=== PATIENT | female | born 1965 | race Caucasian/White ===

== ENCOUNTER 2016-08-27 11:16 | Emergency (ER) | payer SELFPAY ==
[2016-08-27 11:21] VITALS: BP 121/79
--- NOTE | 2016-08-27 11:24 | ER Document Report ---
ED Medical Screen (RME) - General Stated Complaint: LEFT EAR PAIN, DRAINAGE Time seen by provider: 11:19 Mode of Arrival: Ambulatory Information source: Patient Notes: 51 yo female presents to ed for left ear pain with decreased hearing with congestion. Pain is worse at night when she lays down. "tunnel hearing" TRAVEL OUTSIDE OF THE [place] IN LAST 30 DAYS: No - HPI Onset: Other - 3rd day Onset/Duration: Gradual Quality of pain: Achy, Throbbing - night only Severity: Moderate Pain Level: 4 Associated Symptoms: Earache - decreased hearing, Headache Exacerbated by: Supine Relieved by: Denies Similar symptoms previously: Yes Recently seen / treated by doctor: No - Related Data Smoking: Cigarettes - 1/2 ppd Frequency of alcohol use: Rare Drug Abuse: None Allergies/Adverse Reactions: Sulfa (Sulfonamide Antibiotics) Allergy (Verified 07/15/15 10:41) Past Medical History - Past Medical History Cardiac Medical History: Reports: Hx Hypercholesterolemia Pulmonary Medical History: Reports: Hx Asthma, Hx Bronchitis Renal/ Medical History: Reports: Hx Pelvic Inflammatory Disease Musculoskeltal Medical History: Reports Hx Musculoskeletal Trauma - right wrist Psychiatric Medical History: Reports: Hx Anxiety, Hx Borderline Personality Disorder, Hx Depression, Hx Post Traumatic Stress Disorder Traumatic Medical History: Reports: Hx Fractures Past Surgical History: Reports: Hx Oral Surgery - Immunizations Immunizations up to date: Yes Hx Diphtheria, Pertussis, Tetanus Vaccination: Yes - 2013
[2016-08-27] MEDS ORDERED: CIPROFLOXACIN HCL/DEXAMETH OTIC DROP 7.5 ML AS ONE (12:07)
--- NOTE | 2016-08-27 12:08 | ER Document Report ---
ED ENT - General Chief Complaint: Ear Pain Stated Complaint: LEFT EAR PAIN, DRAINAGE Mode of Arrival: Ambulatory Information source: Patient Notes: 51 y/o F presents to ED c/o left ear pain. Pt reports has cough/congestion last week which resolved however states left ear has been feeling congested and causing her pain since, worse over the last 3 days. States she used a qtip to clean her ear out last week but did not feel she injured her ear. Reports noted small amount of pinkish drainage from ear yesterday. Denies fever, chest pain, sob. TRAVEL OUTSIDE OF THE [place] IN LAST 30 DAYS: No - HPI Patient complains to provider of: Ear problem Onset/Duration: Persistent Quality of pain: Achy Severity: Moderate Pain Level: 3 Location of pain: Ears Associated symptoms: Ear pain, Ear drainage Similar symptoms previously: No Recently seen / treated by doctor: No - Related Data Allergies/Adverse Reactions: Sulfa (Sulfonamide Antibiotics) Allergy (Verified 07/15/15 10:41) Past Medical History - General Information source: Patient - Social History Smoking Status: Never Smoker Frequency of alcohol use: Rare Drug Abuse: None Lives with: Family Family History: Reviewed & Not Pertinent Patient has suicidal ideation: No Patient has homicidal ideation: No - Past Medical History Cardiac Medical History: Reports: Hx Hypercholesterolemia Pulmonary Medical History: Reports: Hx Asthma, Hx Bronchitis Renal/ Medical History: Reports: Hx Pelvic Inflammatory Disease Musculoskeltal Medical History: Reports Hx Musculoskeletal Trauma - right wrist Psychiatric Medical History: Reports: Hx Anxiety, Hx Borderline Personality Disorder, Hx Depression, Hx Post Traumatic Stress Disorder Traumatic Medical History: Reports: Hx Fractures Past Surgical History: Reports: Hx Oral Surgery - Immunizations Immunizations up to date: Yes Hx Diphtheria, Pertussis, Tetanus Vaccination: Yes - 2013 Review of Systems - Review of Systems Constitutional: No symptoms reported EENT: See HPI Cardiovascular: No symptoms reported Respiratory: No symptoms reported Gastrointestinal: No symptoms reported Genitourinary: No symptoms reported Female Genitourinary: No symptoms reported Musculoskeletal: No symptoms reported Skin: No symptoms reported Hematologic/Lymphatic: No symptoms reported Neurological/Psychological: No symptoms reported -: Yes All other systems reviewed and negative Physical Exam - Vital signs Vitals: Temp Pulse Resp BP Pulse Ox 98.3 F 70 16 121/79 97 08/27/16 11:20 08/27/16 11:20 08/27/16 11:20 08/27/16 11:20 08/27/16 11:20 Interpretation: Normal - General General appearance: Appears well, Alert In distress: None - HEENT Head: Normocephalic, Atraumatic Eyes: Normal Conjunctiva: Normal Extraocular movements intact: Yes Eyelashes: Normal Pupils: PERRL Ears: Normal - right WNL, Tragus tenderness - left. No: Pinna tenderness External canal: Normal - right WNL, Erythema - left, Swollen - mild-left Tympanic membrane: Normal - right WNL, Perforation - left Sinus: Normal Nasal: Normal Mouth/Lips: Normal Mucous membranes: Normal, Moist Pharynx: Normal. No: Blood in hypopharynx, Erythema, Exudate, Peritonsillar abscess, Post nasal drainage, Retropharyngeal abscess, Tonsillar hypertrophy, Uvular edema, Potential airway comprom., Other Neck: Normal. No: Anterior cervical chain, Posterior cervical chain, Lymphadenopathy, Meningismus, Subcutaneous emphysema - Respiratory Respiratory status: No respiratory distress Chest status: Nontender Breath sounds: Normal Chest palpation: Normal - Cardiovascular Rhythm: Regular Heart sounds: Normal auscultation Murmur: No Pulses: Normal: Radial Normal capillary refill: Yes - Extremities General upper extremity: Normal inspection, Nontender, Normal color, Normal ROM General lower extremity: Normal inspection, Normal color, Normal ROM, Normal weight bearing - Neurological Neuro grossly intact: Yes Cognition: Normal Orientation: AAOx4 [place] Coma Scale Eye Opening: Spontaneous [place] Coma Scale Verbal: Oriented [place] Coma Scale Motor: Obeys Commands [place] Coma Scale Total: 15 Speech: Normal Motor strength normal: LUE, RUE, LLE, RLE Sensory: Normal - Psychological Associated symptoms: Normal affect, Normal mood - Skin Skin Temperature: Warm Skin Moisture: Dry Skin Color: Normal Skin Turgor: Elastic Course - Re-evaluation Re-evalutation: 08/27/16 12:09 Pt hemodynamically stable, in no distress, afebrile. Physical exam findings suggestive of uncomplicated left otitis externa possibly secondary to otitis media with TM perforation. Pt appears stable for discharge and outpatient treatment. Home care, follow-up with pcp and ENT, and ED return precautions discussed with patient who verbalized understanding and agrees with plan. - Vital Signs Vital signs: Temp Pulse Resp BP Pulse Ox 98.3 F 70 16 121/79 97 08/27/16 11:20 08/27/16 11:20 08/27/16 11:20 08/27/16 11:20 08/27/16 11:20 Discharge - Discharge Clinical Impression: Otitis externa Qualifiers: Otitis externa type: unspecified type Laterality: left Chronicity: acute Qualified Code(s): H60.502 - Unspecified acute noninfective otitis externa, left ear Otitis media with rupture of tympanic membrane Qualifiers: Laterality: left Qualified Code(s): H66.92 - Otitis media, unspecified, left ear Condition: Stable Disposition: HOME, SELF-CARE Additional Instructions: OTITIS MEDIA: You have a middle ear infection (otitis media). This is usually a complication of a cold or sore throat. The middle ear cavity becomes filled with infection. Pressure and stretching of the ear drum cause pain. Antibiotics are required. A 10 day course is usually prescribed. A decongestant may be recommended if you have a "runny nose." You may need anesthetic drops or other pain medication. A follow-up exam may be recommended to make sure the infection has completely cleared. If the ear begins to drain, it means the ear drum has ruptured. This will usually heal spontaneously. However, it means you should keep the ear dry until re-examined by a doctor. Call the physician or return for examination at once if there is severe headache, stiff neck, confusion, increasing fever, or dizziness. You should improve significantly within two days. If you're not better, call the doctor. AMOXICILLIN: Amoxicillin is a member of the penicillin family. It covers the germs likely to cause ear, bronchial, and urinary infections better than plain penicillin. Amoxicillin can be taken without regard to meals. Nausea after taking the medication is rare, but can occur. Diarrhea can occur, particularly in small children. Vaginal yeast infections and oral thrush in infants are also common. Contact your physician if these problems occur. Allergy to penicillins is common. If you have had an allergic reaction to any drug of the penicillin family, you should never take any other penicillin. Notify your doctor at once if you develop hives, itching, swelling, faintness, or shortness of breath. Less serious side effects can include nausea or diarrhea. Perforated Eardrum You have a ruptured eardrum. The ruptured eardrum alone is usually not serious. It will probably heal completely within a week or two. If the perforation is too large to heal, further treatment may be necessary. Antibiotics are given if the perforation resulted from infection, or if the middle ear cavity may have been contaminated at the time of perforation. Do not allow any water to get into your ear until the doctor has told you the eardrum is healed. Use an earplug or Vaseline-covered cotton ball for showers. DO NOT SWIM. Follow-up examination to assure complete healing and complete return of hearing will be necessary, and is usually done in one week. If there is purulent drainage, increasing pain, or fever, call the doctor or return at once for re-evaluation. OTITIS EXTERNA: You have otitis externa -- an infection of the outer ear canal. This can be very painful. It's sometimes called "swimmer's ear," because it often occurs after prolonged water exposure. Many things, such as earwax and dirt in the ear, can contribute to it. The usual treatment is antibiotic/antiinflammatory ear drops. Occasionally , a wick will be placed in the ear to draw in the medicine. If the infection is severe, an oral antibiotic may be prescribed. Pain medication is often needed. Avoid getting water in the ear. Outer ear infections often take longer to heal than you might expect. Some tenderness and ache in the ear may persist for about two weeks. See your physician if you fail to improve as expected. Call the doctor at once if you develop fever, increasing swelling (particularly if it makes your ear "poke out"), severe headache, stiff neck, or decreased hearing. USE OF EAR DROPS: Your ear drops won't do much good if they don't get all the way in. To help the ear drops penetrate all the way to the ear drum, use the following technique. If you encounter problems of any kind, notify the physician. (1) Lay your head sideways on a pillow. (2) Place the dropper tip just barely inside the ear canal, almost touching the bottom side of the canal. The liquid is tolerated better on the bottom of the canal. (3) Squeeze out the appropriate amount of medicine, and remove the dropper. (4) Grab the back of the ear (just behind the ear canal) between your index finger and thumb. (5) Tug up, then let the ear drop back. Repeat several times. This pumps the medicine down. (6) Wait five minutes, then place a cotton ball in the ear canal to catch and hold the medicine. CIPROFLOXACIN: You have been given an antibacterial agent, ciprofloxacin (Cipro). This medicine is not related to the penicillins, sulfas, cephalosporins, or tetracyclines. It is often given to patients who are allergic to these drugs. It has been chosen for you either because other drugs are not appropriate, or because of the nature of your problem. Cipro should not be taken with antacids, as these can decrease its effectiveness. It can be taken without regard to meals. CIPRO SHOULD NOT BE TAKEN BY CHILDREN, NURSING WOMEN, OR WOMEN. Although Cipro is usually well-tolerated, common side effects can include nausea and diarrhea. Contact your doctor if you experience any unusual symptoms while on this medication, such as joint pain or swelling, shortness of breath, wheezing, faintness, or hives. USE OF ACETAMINOPHEN (Tylenol): Acetaminophen may be taken for pain relief or fever control. It's much safer than aspirin, offering a wider range of "safe" dosages. It is safe during . Some brand names are Tylenol, Panadol, Datril, Anacin 3, Tempra, and Liquiprin. Acetaminophen can be repeated every four hours. The following are maximum recommended dosages: WEIGHT Dose Drops Elixir Chewable( 80mg) (LBS.) drprs=droppers tsp=teaspoon 6 40 mg 0.4 ml (1/2) 6-11 80 mg 0.8 ml (full) tsp 1 tab 12-16 120 mg 1 1/2 drprs 3/4 tsp 1 1/2 tabs 17-23 160 mg 2 drprs 1 tsp 2 tabs 24-30 240 mg 3 drprs 1 1/2 tsp 3 tabs 30-35 320 mg 2 tsp 4 tabs 36-41 360 mg 2 1/4 tsp 4 1/2 tabs 42-47 400 mg 2 1/2 tsp 5 tabs 48-53 480 mg 3 tsp 6 tabs 54-59 520 mg 3 1/4 tsp 6 1/2 tabs 60-64 560 mg 3 1/2 tsp 7 tabs 65-70 600 mg 3 3/4 tsp 7 1/2 tabs 71-76 640 mg 4 tsp 8 tabs 77-82 720 mg 4 1/2 tsp 9 tabs 83-88 800 mg 5 tsp 10 tabs >89 pounds or adults 650 mg to 900 mg Acetaminophen can be repeated every four hours. Maximum dose not to exceed 4000 mg a day. These maximum recommended dosages are slightly higher than the dosages written on the product container, but these dosages are very safe and below the toxic dosage for acetaminophen. Anti-Inflammatory Medication You have received a prescription for an antiinflammatory agent. This is an excellent, safe drug for pain control. In addition, it has potent antiinflammatory effects which are beneficial, especially in the treatment of injuries, arthritis, or tendonitis. It's best to take this medicine with food. Persons with ulcer disease or allergy to aspirin should notify their physician of this before taking this drug. Take the medication exactly as prescribed. Don't take additional doses unless instructed to do so by your doctor. If you develop wheezing, shortness of breath, hives, faintness, stomach pain, vomiting, or dark black stools, return for re-evaluation at once. FOLLOW-UP CARE: Apply 4 drops of the provided antibiotic drops (Ciprodex) into left ear twice daily for 1 week. Follow-up with your primary care provider and ENT within the next week as discussed. Return to the Emergency Department for any worsening symptoms or concerns. Prescriptions: Amoxicillin 1 tab PO BID 7 Days Naproxen [Naprosyn 375 Mg Tablet] 375 mg PO BIDP PRN #10 tablet PRN Reason: Referrals: [facility] [Provider Group] - Follow up tomorrow
== END 2016-08-27 12:31 | disposition home or self-care (01) ==
LOC: ER 11:16
DX: H60.502 Unspecified acute noninfective otitis externa, left ear (principal); H66.92 Otitis media, unspecified, left ear; H92.02 Otalgia, left ear; E78.00 Pure hypercholesterolemia, unspecified; Z88.2 Allergy status to sulfonamides
CPT/HCPCS: 99282; J3490

== ENCOUNTER 2016-10-20 17:11 | Emergency (ER) | payer SELFPAY ==
[2016-10-20] MEDS ORDERED: ONDANSETRON 4 MG TAB.RAPDIS PO ONE ×2 (17:38→20:49)
--- NOTE | 2016-10-20 17:38 | ER Document Report ---
ED Medical Screen (RME) - General Stated Complaint: VOMITING,FEVER Time seen by provider: 17:36 Mode of Arrival: Ambulatory Information source: Patient Notes: Patient states she ate at [employer] last night, and started having vomiting and diarrhea a couple hours later. Woke up this morning with fever and body aches. Patient states she still has congestion from a cold that she had last week. I have greeted and performed a rapid initial assessment of this patient. A comprehensive ED assessment and evaluation of the patient, analysis of test results and completion of the medical decision making process will be conducted by additional ED providers. TRAVEL OUTSIDE OF THE [place] IN LAST 30 DAYS: No - Related Data Allergies/Adverse Reactions: Sulfa (Sulfonamide Antibiotics) Allergy (Verified 10/20/16 17:38) Past Medical History - Past Medical History Cardiac Medical History: Reports: Hx Hypercholesterolemia Pulmonary Medical History: Reports: Hx Asthma, Hx Bronchitis Renal/ Medical History: Reports: Hx Pelvic Inflammatory Disease Musculoskeltal Medical History: Reports Hx Musculoskeletal Trauma - right wrist Psychiatric Medical History: Reports: Hx Anxiety, Hx Borderline Personality Disorder, Hx Depression, Hx Post Traumatic Stress Disorder Traumatic Medical History: Reports: Hx Fractures Past Surgical History: Reports: Hx Oral Surgery - Immunizations Immunizations up to date: Yes Hx Diphtheria, Pertussis, Tetanus Vaccination: Yes - 2013 Physical Exam - Vital signs Vitals: Temp Pulse Resp BP Pulse Ox 102.6 F H 88 20 110/69 96 10/20/16 17:26 10/20/16 17:26 10/20/16 17:26 10/20/16 17:26 10/20/16 17:26 - Abdominal Inspection: Normal Bowel sounds: Hyperactive Tenderness: Tender - diffuse tenderness Course - Vital Signs Vital signs: Temp Pulse Resp BP Pulse Ox 102.6 F H 88 20 110/69 96 10/20/16 17:26 10/20/16 17:26 10/20/16 17:26 10/20/16 17:26 10/20/16 17:26
[2016-10-20 18:07] LABS: APPEARANCE,URINE SLIGHTLY-CLOUDY; BILIRUBIN,URINE NEGATIVE (NEGATIVE); GLUCOSE, URINE NEGATIVE (NEGATIVE); KETONES,URINE NEGATIVE (NEGATIVE); LEUKOCYTE ESTERASE,URINE TRACE (NEGATIVE); NITRITE,URINE NEGATIVE (NEGATIVE); PROTEIN,URINE 30 mg/dL (NEGATIVE); URINE SPECIFIC GRAVITY 1.031; UROBILINOGEN,URINE NEGATIVE mg/dL (<2.0)
[2016-10-20] MEDS ORDERED: ACETAMINOPHEN 325 MG TABLET PO ONE (19:41)
[2016-10-20] MEDS ORDERED: MORPHINE SULFATE 10 MG/ML INJ IV ONE (22:05)
[2016-10-20] MEDS ORDERED: NORMAL SALINE 1000 ML 1,000 ML IV ONE (22:06)
--- NOTE | 2016-10-20 22:07 | ER Document Report ---
ED GI/ - General Chief Complaint: Nausea/Vomiting/Diarrhea Stated Complaint: VOMITING,FEVER Mode of Arrival: Ambulatory Notes: Patient is a 51-year-old female that comes emergency department for chief complaint of vomiting, diarrhea, pain in her abdomen, and a fever. Symptoms started last night. Patient denies any cough, raw food, denies recent antibiotics. She reports some discomfort with urination. 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 TRAVEL OUTSIDE OF THE [place] IN LAST 30 DAYS: No - Related Data Allergies/Adverse Reactions: Sulfa (Sulfonamide Antibiotics) Allergy (Verified 10/20/16 17:38) Past Medical History - General Information source: Patient - Social History Smoking Status: Current Every Day Smoker Chew tobacco use (# tins/day): No Frequency of alcohol use: Occasional Drug Abuse: None Lives with: Alone Family History: Reviewed & Not Pertinent Patient has suicidal ideation: No Patient has homicidal ideation: No - Past Medical History Cardiac Medical History: Reports: Hx Hypercholesterolemia Pulmonary Medical History: Reports: Hx Asthma, Hx Bronchitis Renal/ Medical History: Reports: Hx Pelvic Inflammatory Disease. Denies: Hx Peritoneal Dialysis Musculoskeltal Medical History: Reports Hx Musculoskeletal Trauma - right wrist Psychiatric Medical History: Reports: Hx Anxiety, Hx Borderline Personality Disorder, Hx Depression, Hx Post Traumatic Stress Disorder Traumatic Medical History: Reports: Hx Fractures Past Surgical History: Reports: Hx Oral Surgery - Immunizations Immunizations up to date: Yes Hx Diphtheria, Pertussis, Tetanus Vaccination: Yes - 2013 Review of Systems - Review of Systems Constitutional: See HPI EENT: No symptoms reported Cardiovascular: No symptoms reported Respiratory: No symptoms reported Gastrointestinal: See HPI Genitourinary: No symptoms reported Female Genitourinary: No symptoms reported Musculoskeletal: No symptoms reported Skin: No symptoms reported Hematologic/Lymphatic: No symptoms reported Neurological/Psychological: No symptoms reported Physical Exam - Vital signs Vitals: Temp Pulse Resp BP Pulse Ox 102.6 F H 88 20 110/69 96 10/20/16 17:26 10/20/16 17:26 10/20/16 17:26 10/20/16 17:26 10/20/16 17:26 Interpretation: Normal - General General appearance: Appears well, Alert In distress: None - HEENT Head: Normocephalic, Atraumatic Eyes: Normal Conjunctiva: Normal Extraocular movements intact: Yes Eyelashes: Normal Pupils: PERRL Sinus: Normal Nasal: Normal Mouth/Lips: Normal Mucous membranes: Normal Pharynx: Normal Neck: Normal - Respiratory Respiratory status: No respiratory distress Chest status: Nontender Breath sounds: Normal. No: Decreased air movement, Nonproductive cough, Wheezing Chest palpation: Normal - Cardiovascular Rhythm: Regular. No: Tachycardia Heart sounds: Normal auscultation, S1 appreciated, S2 appreciated Murmur: No - Abdominal Inspection: Normal Distension: No distension Bowel sounds: Normal Tenderness: Nontender - No noted abdominal tenderness on examination, soft and benign. No: McBurney's point, Landa's sign, Guarding Organomegaly: No organomegaly - Back Back: Normal, Nontender. No: Tender, Deformity/step-off, CVA tenderness - Extremities General upper extremity: Normal inspection, Nontender, Normal color, Normal ROM , Normal temperature General lower extremity: Normal inspection, Nontender, Normal color, Normal ROM , Normal temperature, Normal weight bearing. No: Tereso's sign - Neurological Neuro grossly intact: Yes Cognition: Normal Orientation: AAOx4 [place] Coma Scale Eye Opening: Spontaneous [place] Coma Scale Verbal: Oriented [place] Coma Scale Motor: Obeys Commands [place] Coma Scale Total: 15 Speech: Normal Cranial nerves: Normal Cerebellar coordination: Normal Motor strength normal: LUE, RUE, LLE, RLE Additional motor exam normals: Equal squad sergeant Sensory: Normal - Psychological Associated symptoms: Normal affect, Normal mood - Skin Skin Temperature: Warm Skin Moisture: Dry Skin Color: Normal Course - Re-evaluation Re-evalutation: CBC unremarkable, chemistry unremarkable, urine shows elevated specific gravity but is otherwise unremarkable. Patient's abdomen is soft on examination, requested stool from patient, patient unable to provide this, patient requesting something for discomfort although she appears to be in no distress, no tachycardia, fever resolved after treatment. On multiple re-examinations patient with no decompensation, abdominal exam remains benign, patient unable to give stool sample still, has not had any vomiting. I suspect a viral process because of patient's normal exam, unremarkable workup, and easily treated symptoms. Discussed with patient, she states she is ready to go home, discussed follow-up and return precautions, patient states understanding and agreement. - Vital Signs Vital signs: Temp Pulse Resp BP Pulse Ox 98.2 F 57 L 14 109/66 97 10/21/16 01:50 10/21/16 01:50 10/21/16 01:50 10/21/16 01:50 10/21/16 01:50 - Laboratory Result Diagrams: 10/20/16 22:35 10/20/16 22:35 Laboratory results interpreted by me: 10/20/16 10/20/16 17:45 22:35 Sodium 136.5 L Glucose 112 H Urine Protein 30 H Ur Leukocyte Esterase TRACE H Discharge - Discharge Clinical Impression: Nausea vomiting and diarrhea Fever Qualifiers: Fever type: unspecified Qualified Code(s): R50.9 - Fever, unspecified Condition: Stable Disposition: HOME, SELF-CARE Additional Instructions: Laboratory workup and examination do not indicate an acute abnormality, this could be viral. Take Tylenol or ibuprofen for fever, take Zofran/phenergan for nausea and vomiting, follow-up closely with primary care. Return the emergency department immediately for any concerning or worsening symptoms including worsening abdominal pain, abdominal distention, uncontrolled vomiting, etc. Prescriptions: Promethazine HCl [Phenergan 25 mg Tablet] 1 - 2 tab PO Q6H PRN #15 tablet PRN Reason:
[2016-10-20 22:44] LABS: ABSOLUTE BASOPHILS # (AUTO) 0.1 10^3/uL (0.0-0.2); ABSOLUTE EOSINOPHILS # (AUTO) 0.1 10^3/uL (0.0-0.6); ABSOLUTE LYMPHOCYTES (AUTO) 1.7 10^3/uL (0.5-4.7); ABSOLUTE MONOCYTES (AUTO) 0.6 10^3/uL (0.1-1.4); ABSOLUTE NEUT (AUTO) 5.5 10^3/uL (1.7-8.2); BASOPHILS % (AUTO) 0.6 % (0-2); EOSINOPHILS % (AUTO) 0.9 % (0-6); HEMATOCRIT 43.9 % (36.0-47.0); HEMOGLOBIN 14.8 g/dL (12.0-15.5); HGB HCT DIFFERENCE 0.5; LYMPHOCYTES % (AUTO) 21.5 % (13-45); MEAN CORPUSCULAR HEMOGLOBIN 32.5 pg (27.0-33.4); MEAN CORPUSCULAR HGB CONC 33.7 g/dL (32.0-36.0); MEAN CORPUSCULAR VOLUME 96 fl (80-97); MONOCYTES % (AUTO) 7.7 % (3-13); RED BLOOD COUNT 4.56 10^6/uL (3.72-5.28); RED CELL DISTRIBUTION WIDTH 13.9 % (11.5-14.0); SEGMENTED NEUTROPHILS % (AUTO) 69.3 % (42-78); WHITE BLOOD COUNT 7.9 10^3/uL (4.0-10.5)
[2016-10-20 22:56] LABS: ALANINE AMINOTRANSFERASE 27 U/L (9-52); ALBUMIN 3.7 g/dL (3.5-5.0); ALKALINE PHOSPHATASE 64 U/L (38-126); ANION GAP 9 (5-19); ASPARTATE AMINO TRANSFERASE 20 U/L (14-36); BILIRUBIN,TOTAL 1.1 mg/dL (0.2-1.3); BLOOD UREA NITROGEN 17 mg/dL (7-20); CALCIUM 8.7 mg/dL (8.4-10.2); CARBON DIOXIDE 27 mmol/L (22-30); CHLORIDE 101 mmol/L (98-107); CREATININE RESULT 0.89 mg/dL (0.52-1.25); GLUCOSE 112 mg/dL (75-110); LIPASE 73.3 U/L (23-300); POTASSIUM 3.6 mmol/L (3.6-5.0); SODIUM 136.5 mmol/L (137-145); TOTAL PROTEIN 6.4 g/dL (6.3-8.2)
[2016-10-21] MEDS ORDERED: ONDANSETRON ODT 4 MG TAB (6 TAB/DSPK) PO PRN (01:40)
[2016-10-21] MEDS ORDERED: IBUPROFEN 400 MG TABLET PO ONE (01:57)
[2016-10-21 01:58] VITALS: BP 109/66
== END 2016-10-21 01:55 | disposition home or self-care (01) ==
LOC: ER 17:11
DX: R11.2 Nausea with vomiting, unspecified (principal); R19.7 Diarrhea, unspecified; R50.9 Fever, unspecified; R10.9 Unspecified abdominal pain; R30.0 Dysuria; J44.9 Chronic obstructive pulmonary disease, unspecified; D69.3 Immune thrombocytopenic purpura; J45.909 Unspecified asthma, uncomplicated; F17.200 Nicotine dependence, unspecified, uncomplicated; Z90.81 Acquired absence of spleen; Z88.2 Allergy status to sulfonamides; Z87.42 Personal history of other diseases of the female genital tract
CPT/HCPCS: 99283; 96361; 96374; 36415; 83690; 85025; 80053; 81001; S0119; J3490; J2270; J7030

== ENCOUNTER 2017-08-30 13:08 | Emergency (ER) | payer SELFPAY ==
[2017-08-30] MEDS ORDERED: ONDANSETRON HCL INJ/PF 4 MG/2 ML SDV IV ONE (13:50)
[2017-08-30] MEDS ORDERED: NORMAL SALINE 1000 ML 1,000 ML IV ONE ×2 (13:50→14:38)
--- NOTE | 2017-08-30 13:52 | ER Document Report ---
ED Medical Screen (RME) - General Chief Complaint: Nausea/Vomiting Stated Complaint: NAUSEA,VOMITING,CONGESTION Time Seen by Provider: 08/30/17 13:49 Notes: flu like/n,v,d. TRAVEL OUTSIDE OF THE [place] IN LAST 30 DAYS: No - Related Data Allergies/Adverse Reactions: Sulfa (Sulfonamide Antibiotics) Allergy (Verified 08/30/17 13:10) Past Medical History - Social History Chew tobacco use (# tins/day): No Frequency of alcohol use: None Drug Abuse: None - Past Medical History Cardiac Medical History: Reports: Hx Hypercholesterolemia Pulmonary Medical History: Reports: Hx Asthma, Hx Bronchitis Renal/ Medical History: Reports: Hx Pelvic Inflammatory Disease. Denies: Hx Peritoneal Dialysis Musculoskeltal Medical History: Reports Hx Musculoskeletal Trauma - right wrist Psychiatric Medical History: Reports: Hx Anxiety, Hx Borderline Personality Disorder, Hx Depression, Hx Post Traumatic Stress Disorder Traumatic Medical History: Reports: Hx Fractures Past Surgical History: Reports: Hx Oral Surgery - Immunizations Immunizations up to date: Yes Hx Diphtheria, Pertussis, Tetanus Vaccination: Yes - 2013 Physical Exam - Vital signs Vitals: Temp Pulse Resp BP Pulse Ox 98.6 F 93 18 134/69 H 94 08/30/17 13:20 08/30/17 13:20 08/30/17 13:20 08/30/17 13:20 08/30/17 13:20 Course - Vital Signs Vital signs: Temp Pulse Resp BP Pulse Ox 98.6 F 93 18 134/69 H 94 08/30/17 13:20 08/30/17 13:20 08/30/17 13:20 08/30/17 13:20 08/30/17 13:20
[2017-08-30 14:20] LABS: ABSOLUTE BASOPHILS # (AUTO) 0.1 10^3/uL (0.0-0.2); ABSOLUTE EOSINOPHILS # (AUTO) 0.1 10^3/uL (0.0-0.6); ABSOLUTE LYMPHOCYTES (AUTO) 2.8 10^3/uL (0.5-4.7); ABSOLUTE MONOCYTES (AUTO) 1.6 10^3/uL (0.1-1.4); ABSOLUTE NEUT (AUTO) 4.1 10^3/uL (1.7-8.2); BASOPHILS % (AUTO) 0.9 % (0-2); EOSINOPHILS % (AUTO) 1.5 % (0-6); HEMATOCRIT 47.2 % (36.0-47.0); HEMOGLOBIN 16.2 g/dL (12.0-15.5); LYMPHOCYTES % (AUTO) 31.9 % (13-45); MEAN CORPUSCULAR HEMOGLOBIN 32.6 pg (27.0-33.4); MEAN CORPUSCULAR HGB CONC 34.3 g/dL (32.0-36.0); MEAN CORPUSCULAR VOLUME 95 fl (80-97); MONOCYTES % (AUTO) 18.4 % (3-13); PLATELET COUNT 605 10^3/uL (150-450); RED BLOOD COUNT 4.97 10^6/uL (3.72-5.28); RED CELL DISTRIBUTION WIDTH 13.7 % (11.5-14.0); SEGMENTED NEUTROPHILS % (AUTO) 47.3 % (42-78); TOTAL CELLS COUNTED % (AUTO) 100 %; WHITE BLOOD COUNT 8.6 10^3/uL (4.0-10.5)
[2017-08-30 14:34] LABS: APPEARANCE,URINE SLIGHTLY-CLOUDY; BILIRUBIN,URINE NEGATIVE (NEGATIVE); COLOR,URINE AMBER; GLUCOSE, URINE NEGATIVE (NEGATIVE); KETONES,URINE NEGATIVE (NEGATIVE); LEUKOCYTE ESTERASE,URINE MODERATE (NEGATIVE); NITRITE,URINE POSITIVE (NEGATIVE); PROTEIN,URINE 30 mg/dL (NEGATIVE); URINE SPECIFIC GRAVITY 1.033
[2017-08-30 14:37] LABS: ALANINE AMINOTRANSFERASE 26 U/L (9-52); ALBUMIN 4.6 g/dL (3.5-5.0); ALKALINE PHOSPHATASE 77 U/L (38-126); ANION GAP 10 (5-19); ASPARTATE AMINO TRANSFERASE 27 U/L (14-36); BILIRUBIN,DIRECT 0.2 mg/dL (0.0-0.4); BILIRUBIN,TOTAL 0.5 mg/dL (0.2-1.3); BLOOD UREA NITROGEN 11 mg/dL (7-20); CALCIUM 9.6 mg/dL (8.4-10.2); CARBON DIOXIDE 27 mmol/L (22-30); CHLORIDE 104 mmol/L (98-107); GLUCOSE 115 mg/dL (75-110); POTASSIUM 3.7 mmol/L (3.6-5.0); SODIUM 141.1 mmol/L (137-145); TOTAL PROTEIN 8.3 g/dL (6.3-8.2)
--- NOTE | 2017-08-30 14:48 | ER Document Report ---
ED General - General Chief Complaint: Nausea/Vomiting Stated Complaint: NAUSEA,VOMITING,CONGESTION Time Seen by Provider: 08/30/17 13:49 TRAVEL OUTSIDE OF THE [place] IN LAST 30 DAYS: No - HPI Notes: Patient is a 52-year-old female with a history of ITP who presents to the ED complaining of body ache, nasal congestion/discharge, dry nonproductive cough, intermittent nausea/vomiting/diarrhea 3 days. Patient states that she has also had increased urinary frequency and voiding small amounts over the last several days. Patient states that she is still able to keep fluids down, but anytime she smells food she becomes nauseous. Patient has not noticed any hematemesis, melena, or hematochezia. Patient has not been using any over-the- counter meds for her symptoms currently. Patient did not get her flu shot this year. No other concerns or complaints at this time. Denies any headache, fever ,neck pain, sore throat, chest pain, palpitations, syncope, shortness of breath , wheeze, dyspnea, abdominal pain, urinary retention, loss of control of bowel or bladder, numbness/tingling, saddle anesthesia, muscle paralysis/weakness, or rash. - Related Data Allergies/Adverse Reactions: Sulfa (Sulfonamide Antibiotics) Allergy (Verified 08/30/17 13:10) Past Medical History - Social History Smoking Status: Current Every Day Smoker Chew tobacco use (# tins/day): No Frequency of alcohol use: None Drug Abuse: None Family History: Reviewed & Not Pertinent Patient has suicidal ideation: No Patient has homicidal ideation: No - Past Medical History Cardiac Medical History: Reports: Hx Hypercholesterolemia Pulmonary Medical History: Reports: Hx Asthma, Hx Bronchitis Renal/ Medical History: Reports: Hx Pelvic Inflammatory Disease. Denies: Hx Peritoneal Dialysis Musculoskeltal Medical History: Reports Hx Musculoskeletal Trauma - right wrist Psychiatric Medical History: Reports: Hx Anxiety, Hx Borderline Personality Disorder, Hx Depression, Hx Post Traumatic Stress Disorder Traumatic Medical History: Reports: Hx Fractures Past Surgical History: Reports: Hx Oral Surgery - Immunizations Immunizations up to date: Yes Hx Diphtheria, Pertussis, Tetanus Vaccination: Yes - 2013 Review of Systems - Review of Systems Notes: REVIEW OF SYSTEMS: CONSTITUTIONAL : see hpi. Denies fever, chills, or sweats. Denies recent illness. EENT: see hpi CARDIOVASCULAR: Denies chest pain. Denies palpitations or racing or irregular heart beat. Denies ankle edema. RESPIRATORY: see hpi. Denies shortness of breath, difficulty breathing, or wheezing. GASTROINTESTINAL: see hpi GENITOURINARY: see hpi MUSCULOSKELETAL: Denies back or neck pain or stiffness. Denies joint pain or swelling. SKIN: Denies rash, lesions or sores. NEUROLOGICAL: Denies confusion or altered mental status. Denies passing out or loss of consciousness. Denies dizziness or lightheadedness. Denies headache. Denies weakness or paralysis or l oss of use of either side. Denies problems with gait or speech. Denies sensory loss, numbness, or tingling. Denies seizures. ALL OTHER SYSTEMS REVIEWED AND NEGATIVE. Dictation was performed using [employer] voice recognition software Physical Exam - Vital signs Vitals: Temp Pulse Resp BP Pulse Ox 98.6 F 93 18 134/69 H 94 08/30/17 13:20 08/30/17 13:20 08/30/17 13:20 08/30/17 13:20 08/30/17 13:20 Notes: PHYSICAL EXAMINATION: GENERAL: Well-appearing, well-nourished and in no acute distress. A&Ox4 HEAD: Atraumatic, normocephalic. EYES: Pupils equal round and reactive to light, extraocular movements intact, sclera anicteric, conjunctiva are normal. ENT: EAC clear b/l. TM's intact b/l without erythema, fluid, or perforation. Nares patent and with clear discharge. oropharynx mild erythema without exudates. 1+ tonsilar hypertrophy without erythema or exudate. No palatine shift. Uvula midline. No tongue protrusion. No drooling, hoarseness, or airway compromise. Moist mucous membranes. No sinus tenderness. NECK: Normal range of motion, supple without lymphadenopathy. No rigidity/ meningismus. LUNGS: Breath sounds clear to auscultation bilaterally and equal. No wheezes rales or rhonchi. HEART: Regular rate and rhythm without murmurs, rubs, gallops. ABDOMEN: Soft, nontender, nondistended abdomen. No guarding, no rebound. No masses appreciated. Normal bowel sounds present. No CVA tenderness bilaterally. No obvious hepatosplenomegaly. NEUROLOGICAL: Normal speech, normal gait. Normal sensory, motor exams PSYCH: Normal mood, normal affect. SKIN: Warm, Dry, normal turgor, no rashes or lesions noted. Course - Re-evaluation Re-evalutation: 08/30/17 15:36 Patient is an afebrile, well-hydrated, 52-year-old female who presents to the ED with acute URI/acute gastroenteritis, suspect viral, as well as acute UTI. Vitals are stable. PE is otherwise unremarkable. CBC, CMP unremarkable for any acute pathology as well as a rapid influenza. Urinalysis showed nitrates and leuks with a urine culture pending. Pt was given 2L NS as well as zofran IV. Pt is tolerating PO. Low suspicion/risk for acute appendicitis, bowel obstruction, acute cholecystitis, acute cholangitis, perforated diverticulitis, incarcerated hernia, pancreatitis, perforated ulcer, peritonitis, sepsis, pelvic inflammatory disease, ectopic , tubo-ovarian abscess, ovarian torsion, or other systemic emergent condition at this time. Patient is aware that her condition can change from initial presentation and she needs to monitor symptoms closely and seek medical attention if any acute changes. I will send her home with a Rx for keflex and zofran. Conservative measures otherwise for symptoms. Recheck with your PCM in 3-5 days. Return to the ED with any worsening/concerning symptoms otherwise as reviewed in discharge. Patient is in agreement. - Vital Signs Vital signs: Temp Pulse Resp BP Pulse Ox 98.6 F 93 18 134/69 H 94 08/30/17 13:20 08/30/17 13:20 08/30/17 13:20 08/30/17 13:20 08/30/17 13:20 - Laboratory Result Diagrams: 08/30/17 14:02 08/30/17 14:02 Laboratory results interpreted by me: 08/30/17 08/30/17 08/30/17 14:02 14:02 14:02 Hgb 16.2 H Hct 47.2 H Plt Count 605 H Monocytes % 18.4 H Absolute Monocytes 1.6 H Glucose 115 H Total Protein 8.3 H Urine Protein 30 H Urine Nitrite POSITIVE H Urine Urobilinogen 4.0 H Ur Leukocyte Esterase MODERATE H Discharge - Discharge Clinical Impression: UTI (urinary tract infection) Qualifiers: Urinary tract infection type: site unspecified Hematuria presence: without hematuria Qualified Code(s): N39.0 - Urinary tract infection, site not specified Condition: Stable Disposition: HOME, SELF-CARE Instructions: Cephalexin ([facility]), Influenza ([facility]), Urinary Tract Infection ([facility]) Additional Instructions: Push fluids (i.e. water, cranberry juice) Proper hygenic technique Keep the skin clean Tylenol as needed OTC cold medication as needed Take zofran as needed BRAT diet (bananas, rice, apples, toast, etc). Take medications as directed F/u with your PCM in 3-5 days for a recheck Consider consult with a Urologist for ongoing/worsening symptoms. Return to the ED with any worsening symptoms and/or development of fever, headache, chest pain, palpitations, syncope, shortness of breath, trouble breathing, abdominal pain, n/v/d, blood in stool/urine, loss of control of bowel /bladder, urinary retention, or other worsening symptoms that are concerning to you. Prescriptions: Cephalexin Monohydrate [Keflex 500 mg Capsule] 500 mg PO BID #14 capsule Ondansetron [Zofran Odt 4 mg Tablet] 1 - 2 tab PO Q4H PRN #15 tab.rapdis PRN Reason: For Nausea/Vomiting Forms: Elevated Blood Pressure Referrals: [facility] [Provider Group] - Follow up as needed [facility] [Provider Group] - Follow up as needed [facility] [Provider Group] - Follow up as needed
[2017-08-30 14:54] LABS: A TYPE INFLUENZA AG NEGATIVE (NEGATIVE); B INFLUENZA AG NEGATIVE (NEGATIVE)
--- NOTE | 2017-08-30 15:29 | RADIOLOGY REPORT (SQ) ---
EXAM DESCRIPTION: CHEST PA/LAT COMPLETED DATE/TIME: 08/30/2017 3:09 pm REASON FOR STUDY: cough/fever COMPARISON: 06/07/2015 EXAM PARAMETERS: NUMBER OF VIEWS: two views TECHNIQUE: Digital Frontal and Lateral radiographic views of the chest acquired. RADIATION DOSE: NA LIMITATIONS: none FINDINGS: LUNGS AND PLEURA: No opacities, masses or pneumothorax. No pleural effusion. MEDIASTINUM AND HILAR STRUCTURES: No masses or contour abnormalities. HEART AND VASCULAR STRUCTURES: Heart normal size. No evidence for failure. BONES: No acute findings. HARDWARE: None in the chest. OTHER: No other significant finding. IMPRESSION: NO SIGNIFICANT RADIOGRAPHIC FINDING IN THE CHEST. TECHNICAL DOCUMENTATION: JOB ID: [id number] [employer]- All Rights Reserved
[2017-08-30 16:41] VITALS: BP 125/66
== END 2017-08-30 16:40 | disposition home or self-care (01) ==
LOC: ER 13:08
DX: N39.0 Urinary tract infection, site not specified (principal); R11.2 Nausea with vomiting, unspecified; M79.1 Myalgia; F17.200 Nicotine dependence, unspecified, uncomplicated; E78.00 Pure hypercholesterolemia, unspecified; Z88.2 Allergy status to sulfonamides
CPT/HCPCS: 99284; 96361; 96374; 36415; 87086; 85025; 87088; 80053; 81001; 87186; 87804; 71046; J2405; J7030

== ENCOUNTER 2017-11-28 20:53 | Inpatient (IN) | payer SELFPAY ==
[2017-11-28] MEDS ORDERED: OXYCODONE-ACETAMINOPHEN 5-325 MG TABLET PO ONE (20:57)
--- NOTE | 2017-11-28 21:00 | ER Document Report ---
ED Medical Screen (RME) - General Stated Complaint: ARM INJURY Time Seen by Provider: 11/28/17 20:57 Notes: 52-year-old female patient fell backwards at home and injured her left mid forearm. Spouse reported a bone sticking out. EMS reported angulated and splinted the forearm. At this time it is splinted and wrapped. Is very tender to mid forearm. The elbow is not tender. I have greeted and performed a rapid initial assessment of this patient. A comprehensive ED assessment and evaluation of the patient, analysis of test results and completion of the medical decision making process will be conducted by additional ED providers. TRAVEL OUTSIDE OF THE [place] IN LAST 30 DAYS: No - Related Data Allergies/Adverse Reactions: Sulfa (Sulfonamide Antibiotics) Allergy (Verified 08/30/17 13:10) Past Medical History - Past Medical History Cardiac Medical History: Reports: Hx Hypercholesterolemia Pulmonary Medical History: Reports: Hx Asthma, Hx Bronchitis Renal/ Medical History: Reports: Hx Pelvic Inflammatory Disease. Denies: Hx Peritoneal Dialysis Musculoskeltal Medical History: Reports Hx Musculoskeletal Trauma - right wrist Psychiatric Medical History: Reports: Hx Anxiety, Hx Borderline Personality Disorder, Hx Depression, Hx Post Traumatic Stress Disorder Traumatic Medical History: Reports: Hx Fractures Past Surgical History: Reports: Hx Oral Surgery - Immunizations Immunizations up to date: Yes Hx Diphtheria, Pertussis, Tetanus Vaccination: Yes - 2013
[2017-11-28] MEDS ORDERED: MORPHINE SULFATE IR 15 MG TABLET PO ONE (21:06)
[2017-11-28] MEDS ORDERED: ACETAMINOPHEN 325 MG TABLET PO ONE (21:06)
[2017-11-28] MEDS ORDERED: IBUPROFEN 600 MG TABLET PO ONE (21:06)
--- NOTE | 2017-11-28 21:22 | RADIOLOGY REPORT (SQ) ---
EXAM DESCRIPTION: FOREARM LEFT COMPLETED DATE/TIME: 11/28/2017 9:15 pm REASON FOR STUDY: fx forearm COMPARISON: None. NUMBER OF VIEWS: Two views. TECHNIQUE: Two radiographic images acquired of the left forearm, including elbow and wrist in at [address] one projection. LIMITATIONS: None. FINDINGS: MINERALIZATION: Normal. BONES: Displaced fractures of the midshaft of the radius and ulna. SOFT TISSUES: No obvious swelling or foreign body. OTHER: No other significant finding. IMPRESSION: DISPLACED FRACTURES OF THE RADIUS AND ULNA. TECHNICAL DOCUMENTATION: JOB ID: [id number] [employer]- All Rights Reserved Reading location - IP/workstation name: [email or web address]
[2017-11-28] MEDS ORDERED: NORMAL SALINE 1000 ML 1,000 ML IV ONE (22:13)
--- NOTE | 2017-11-28 22:15 | ER Document Report ---
ED General - General Chief Complaint: Fall Injury Stated Complaint: ARM INJURY Time Seen by Provider: 11/28/17 20:57 Cannot obtain history due to: Intoxicated Notes: Patient is a 52 year old female who presents after falling off her front porch onto her left forearm. Her at bedside states that she fell off porch return to her left forearm did not sustain any additional injuries. Patient likewise denies any additional injuries other than her left forearm. She denies hitting her head or neck. Patient is mildly intoxicated admits to heavy regular alcohol use. She denies any other chronic medical problems. History is otherwise limited secondary to the patient's degree of intoxication. TRAVEL OUTSIDE OF THE [place] IN LAST 30 DAYS: No - Related Data Allergies/Adverse Reactions: Sulfa (Sulfonamide Antibiotics) Allergy (Verified 08/30/17 13:10) Past Medical History - General Information source: Patient, Relative - Social History Smoking Status: Current Every Day Smoker Frequency of alcohol use: Heavy Drug Abuse: None Lives with: Spouse/Significant other Family History: Reviewed & Not Pertinent - Past Medical History Cardiac Medical History: Reports: Hx Hypercholesterolemia Pulmonary Medical History: Reports: Hx Asthma, Hx Bronchitis Renal/ Medical History: Reports: Hx Pelvic Inflammatory Disease. Denies: Hx Peritoneal Dialysis Musculoskeltal Medical History: Reports Hx Musculoskeletal Trauma - right wrist Psychiatric Medical History: Reports: Hx Anxiety, Hx Borderline Personality Disorder, Hx Depression, Hx Post Traumatic Stress Disorder Traumatic Medical History: Reports: Hx Fractures Past Surgical History: Reports: Hx Oral Surgery - Immunizations Immunizations up to date: Yes Hx Diphtheria, Pertussis, Tetanus Vaccination: Yes - 2013 Review of Systems - Review of Systems Notes: Constitutional: Negative for fever. Eyes: Negative for visual changes. ENT: Negative for facial injury Cardiovascular: Negative for chest injury. Respiratory: Negative for shortness of breath. Gastrointestinal: Negative for abdominal injury. Genitourinary: Negative for genital injury Musculoskeletal: Positive for left arm injury Skin: Positive for laceration/abrasions. Neurological: Negative for head injury. Physical Exam - Vital signs Vitals: Resp Pulse Ox 25 H 95 11/28/17 21:30 11/28/17 21:30 Interpretation: Tachypneic Notes: PHYSICAL EXAMINATION: GENERAL: No acute distress but is visibly intoxicated HEAD: Atraumatic, normocephalic. EYES: Pupils equal round and reactive to light, extraocular movements intact, sclera anicteric, conjunctiva are normal. ENT: nares patent, no oral pharyngeal trauma. No hemotympanum, no Liriano's sign , no raccoon eyes. NECK: No midline cervical spine tenderness. Patient able to move their head to 45 bilaterally without any discomfort. LUNGS: Breath sounds clear to auscultation bilaterally and equal. No wheezes rales or rhonchi. HEART: Regular bradycardia without murmurs. CHEST WALL: No ecchymosis over the chest wall. ABDOMEN: Soft, nontender, normoactive bowel sounds. No guarding, no rebound. No abdominal bruising EXTREMITIES: Obvious deformity of the left midforearm. Unable to perform range of motion with the left hand although sensation intact. BACK: No midline spinal tenderness, step-offs, or deformities. NEUROLOGICAL: Face symmetric. Tongue protrudes midline. Extraocular motions intact. Pupils are 2 mm and equally reactive. Slurred speech secondary to intoxication. 5 out of 5 strength in both the distal and proximal upper and lower extremities bilaterally. Sensation is grossly intact throughout. PSYCH: Intoxicated SKIN: Warm, Dry, normal turgor, there is a 1 cm superficial laceration to the left midforearm Course - Re-evaluation Re-evalutation: 11/28/17 22:13 Patient presents with a radius and ulna fracture with displacement of the left upper extremity. She is right-hand dominant. 2+ radial pulse. She is intoxicated but denies any additional injuries. She has no additional injuries to any other area of her body. Patient's initial vitals do show bradycardia as well as mild hypotension. IV fluids will be administered. Will proceed with procedural sedation using ketamine for reduction of the fracture under C arm fluoroscopy 11/28/17 23:35 Reduction was completed using ketamine and propofol as patient had significant spasm under ketamine. With appropriate sedation, a moderate improvement of anatomic alignment was able to be achieved using C-arm and manual reduction with a sugar tong splint placement. However anatomic alignment is still not adequate and is highly unstable even in the splint. I believe that the patient will require inpatient management for fixation due to the gross instability. I have discussed with who agrees this will require operative management. Given the patient's history of alcoholism and idiopathic thrombocytopenic purpura he has asked that she be admitted to the hospitalist service which I will request. Basic labs will be obtained. - Vital Signs Vital signs: Temp Pulse Resp BP Pulse Ox 98.3 F 65 14 115/71 96 11/29/17 02:30 11/29/17 02:30 11/29/17 02:30 11/29/17 02:30 11/29/17 02:30 - Laboratory Result Diagrams: 11/29/17 00:28 11/29/17 00:28 - Diagnostic Test Radiology reviewed: Image reviewed, Reports reviewed Radiology results interpreted by me: 11/28/17 22:15 Left forearm x-ray: There is a fracture of both the radius and ulna with displacement of the radius. Procedures - Conscious Sedation Conscious sedation Time started: 23:06 Time completed: 23:30 Consent obtained: Yes Indication: Reduction of left forearm fractures, splint placement Prior complications: Procedural sedation Pt with a mild systemic disease.: P2. - ASA Classification. Airway Evaluation: Normal anatomy Mallampati Classification: Class 1 Used during procedure: Suction available, IV access obtained, Pulse ox on pt., youth nutritional monitor on pt. Medications administered: Ketamine, Diprivan Reversal agents: None I personally performed/intraservice time: Sedation, Procedure, 30 min or less Complications: No - Immobilization Left Arm Time completed: 23:20 Pre-Proc Neuro Vasc Exam: Normal Immobilizer type: Sugar tong Performed by: Provider Post-Proc Neuro Vasc Exam: Normal Alignment checked and good: No - Unable to achieve adequate reduction - Joint Reduction/Fracture Care Left Arm Time completed: 23:30 Consent obtained: Yes Conscious sedation: Yes Pre-procedure NV exam: Yes Fracture: Closed Manipulation comment: Anterior traction, mobilization of the bony fragments to anatomic alignment Post-procedure NV exam: Yes Post-reduction x-ray: Joint reduced Reduction attempts: 1 Complications: No Notes: 11/29/17 03:37 Anatomic alignment is improved although not adequate. Bone fragments are too unstable to maintain appropriate anatomic alignment Discharge - Discharge Clinical Impression: Fracture of left radius and ulna Qualifiers: Encounter type: initial encounter Fracture type: closed Qualified Code(s): S52.92XA - Unspecified fracture of left forearm, initial encounter for closed fracture Alcoholic intoxication Qualifiers: Complication of substance-induced condition: uncomplicated Qualified Code(s): F10.920 - Alcohol use, unspecified with intoxication, uncomplicated Fall Qualifiers: Encounter type: initial encounter Qualified Code(s): W19.XXXA - Unspecified fall, initial encounter Condition: Fair Disposition: ADMITTED INPATIENT Admitting Provider: Hospitalist Unit Admitted: Telemetry
[2017-11-28] MEDS ORDERED: KETAMINE HCL INJ 500 MG/10 ML VIAL IV ONE (22:46)
[2017-11-28] MEDS ORDERED: ONDANSETRON HCL INJ/PF 4 MG/2 ML SDV ONE (23:05)
[2017-11-28] MEDS ORDERED: PROPOFOL 100 ML IV ONE (23:12)
[2017-11-28] MEDS ORDERED: PROPOFOL INJ 200 MG/20 ML VIAL IV ONE (23:32)
[2017-11-28] MEDS ORDERED: ONDANSETRON HCL INJ/PF 4 MG/2 ML SDV IV ONE (23:32)
[2017-11-28] MEDS ORDERED: THIAMINE HCL 100 MG, FOLIC ACID 1 MG in NORMAL SALINE 250 ML IV ONE (23:39)
--- NOTE | 2017-11-28 23:56 | RADIOLOGY REPORT (SQ) ---
EXAM DESCRIPTION: FOREARM LEFT; NOT FOR OR FLUORO TO 1 HR COMPLETED DATE/TIME: 11/28/2017 11:47 pm REASON FOR STUDY: post reduction; POST REDUCTION LT FOREARM COMPARISON: 11/28/2017. FLUOROSCOPY TIME: 32 seconds. 2 images saved to PACS. TECHNIQUE: Intra-operative images acquired during surgical procedure to evaluate progress. NUMBER OF IMAGES: 2 images. LIMITATIONS: None. FINDINGS: Images of the forearm acquired during closed reduction. IMPRESSION: IMAGE(S) OBTAINED DURING PROCEDURE. COMMENT: Quality ID [id number]: Final reports for procedures using fluoroscopy that document radiation exp osure indices, or exposure time and number of fluorographic images (if radiation exposure indices are not available) Please consult full operative report of the attending physician for description of the procedure. TECHNICAL DOCUMENTATION: JOB ID: [id number] [employer]- All Rights Reserved Reading location - IP/workstation name: [email or web address]
--- NOTE | 2017-11-28 23:56 | RADIOLOGY REPORT (SQ) ---
EXAM DESCRIPTION: FOREARM LEFT; NOT FOR OR FLUORO TO 1 HR COMPLETED DATE/TIME: 11/28/2017 11:47 pm REASON FOR STUDY: post reduction; POST REDUCTION LT FOREARM COMPARISON: 11/28/2017. FLUOROSCOPY TIME: 32 seconds. 2 images saved to PACS. TECHNIQUE: Intra-operative images acquired during surgical procedure to evaluate progress. NUMBER OF IMAGES: 2 images. LIMITATIONS: None. FINDINGS: Images of the forearm acquired during closed reduction. IMPRESSION: IMAGE(S) OBTAINED DURING PROCEDURE. COMMENT: Quality ID [id number]: Final reports for procedures using fluoroscopy that document radiation exp osure indices, or exposure time and number of fluorographic images (if radiation exposure indices are not available) Please consult full operative report of the attending physician for description of the procedure. TECHNICAL DOCUMENTATION: JOB ID: [id number] [employer]- All Rights Reserved Reading location - IP/workstation name: [email or web address]
[2017-11-29] MEDS ORDERED: DEXTROSE 40% GEL 15 GM TUBE PO PRN ×2 (00:23)
[2017-11-29] MEDS ORDERED: ONDANSETRON HCL INJ/PF 4 MG/2 ML SDV IV PRN (00:23)
[2017-11-29] MEDS ORDERED: GLUCAGON,HUMAN RECOMB 1 MG INJ SUBCUT PRN (00:23)
[2017-11-29] MEDS ORDERED: DEXTROSE 50%-WATER 25 GM/50 ML DISP.SYRIN IV PRN ×2 (00:23)
[2017-11-29] MEDS ORDERED: MORPHINE SULFATE 10 MG/ML INJ IV PRN (00:29)
[2017-11-29] MEDS ORDERED: THIAMINE HCL INJ 200 MG/2 ML VIAL ONE (00:29)
[2017-11-29] MEDS ORDERED: FOLIC ACID INJ 5 MG/1 ML 10 ML VIAL ONE (00:29)
[2017-11-29] MEDS ORDERED: DEXTROSE 5%-LACTATED RINGERS 1,000 ML IV PRN (00:30)
[2017-11-29 00:45] LABS: ABSOLUTE BASOPHILS # (AUTO) 0.1 10^3/uL (0.0-0.2); ABSOLUTE LYMPHOCYTES (AUTO) 1.2 10^3/uL (0.5-4.7); ABSOLUTE MONOCYTES (AUTO) 0.4 10^3/uL (0.1-1.4); ABSOLUTE NEUT (AUTO) 10.6 10^3/uL (1.7-8.2); BASOPHILS % (AUTO) 0.7 % (0-2); EOSINOPHILS % (AUTO) 0.2 % (0-6); HEMATOCRIT 45.7 % (36.0-47.0); HEMOGLOBIN 15.1 g/dL (12.0-15.5); LYMPHOCYTES % (AUTO) 9.9 % (13-45); MEAN CORPUSCULAR HEMOGLOBIN 32.9 pg (27.0-33.4); MEAN CORPUSCULAR HGB CONC 33.1 g/dL (32.0-36.0); MEAN CORPUSCULAR VOLUME 99 fl (80-97); MONOCYTES % (AUTO) 3.3 % (3-13); PLATELET COUNT 267 10^3/uL (150-450); RED CELL DISTRIBUTION WIDTH 14.1 % (11.5-14.0); SEGMENTED NEUTROPHILS % (AUTO) 85.9 % (42-78); TOTAL CELLS COUNTED % (AUTO) 100 %; WHITE BLOOD COUNT 12.3 10^3/uL (4.0-10.5)
[2017-11-29] MEDS ORDERED: THIAMINE HCL INJ 200 MG/2 ML VIAL IV PRN (00:46)
[2017-11-29] MEDS ORDERED: FOLIC ACID INJ 5 MG/1 ML 10 ML VIAL IV PRN (00:47)
[2017-11-29 01:08] LABS: ALCOHOL 189 mg/dL (NONE DETECTED); ANION GAP 9 (5-19); BLOOD UREA NITROGEN 12 mg/dL (7-20); CALCIUM 7.8 mg/dL (8.4-10.2); CARBON DIOXIDE 23 mmol/L (22-30); CHLORIDE 107 mmol/L (98-107); GLUCOSE 105 mg/dL (75-110); POTASSIUM 4.3 mmol/L (3.6-5.0); SODIUM 138.5 mmol/L (137-145)
[2017-11-29 01:23] LABS: APPEARANCE,URINE SLIGHTLY-CLOUDY; BILIRUBIN,URINE NEGATIVE (NEGATIVE); COLOR,URINE YELLOW; GLUCOSE, URINE NEGATIVE (NEGATIVE); KETONES,URINE NEGATIVE (NEGATIVE); LEUKOCYTE ESTERASE,URINE TRACE (NEGATIVE); NITRITE,URINE NEGATIVE (NEGATIVE); PROTEIN,URINE NEGATIVE (NEGATIVE); UROBILINOGEN,URINE NEGATIVE mg/dL (<2.0)
[2017-11-29] MEDS: LORAZEPAM INJ 2 MG/1 ML VIAL IV PRN ×2 (01:54→05:37)
--- NOTE | 2017-11-29 02:49 | PDOC H&P ---
History of Present Illness Admission Date/PCP: 11/28/17 23:59 History of Present Illness: NYA PRESCOTT is a 52 year old female patient brought by EMS after she sustained accidental fall and broke her left arm. Patient is visibly intoxicated and she is not social history. Patient has been evaluated by orthopedic surgeon who requested the hospitalist service to admit the patient the reason being patient might withdrawa. Further detailed history and review of systems unobtainable. Past Medical History Cardiac Medical History: Reports: Hyperlipidema Pulmonary Medical History: Reports: Asthma, Bronchitis Psychiatric Medical History: Reports: Depression, Post Traumatic Stress Disorder Past Surgical History Past Surgical History: Reports: None Social History Smoking Status: Current Every Day Smoker - Advance Directive Resuscitation Status: Full Code Family History Family History: Reviewed & Not Pertinent Parental Family History Reviewed: Yes Children Family History Reviewed: Yes Sibling(s) Family History Reviewed.: Yes Medication/Allergy Home Medications: No Home Medications 11/29/17 Allergies/Adverse Reactions: Sulfa (Sulfonamide Antibiotics) Allergy (Verified 08/30/17 13:10) Review of Systems ROS unobtainable: Due to mental status Physical Exam Vital Signs: Temp Pulse Resp BP Pulse Ox 98.7 F 54 L 20 118/87 H 96 11/29/17 01:00 11/28/17 23:39 11/29/17 01:00 11/29/17 00:01 11/29/17 01:00 General appearance: PRESENT: no acute distress, other - Intoxicated Head exam: PRESENT: atraumatic, normocephalic Mouth exam: PRESENT: dry mucosa Respiratory exam: PRESENT: clear to auscultation heber. ABSENT: rales, rhonchi, wheezes Cardiovascular exam: PRESENT: RRR. ABSENT: diastolic murmur, rubs, systolic murmur GI/Abdominal exam: PRESENT: normal bowel sounds, soft. ABSENT: distended, guarding, mass, organolmegaly, rebound, tenderness Musculoskeletal exam: PRESENT: other - Her left arm is splinted Results Laboratory Results: 11/29/17 00:28 11/29/17 00:28 11/29/17 11/29/17 11/29/17 00:28 00:28 00:52 WBC 12.3 H RBC 4.60 Hgb 15.1 Hct 45.7 MCV 99 H MCH 32.9 MCHC 33.1 RDW 14.1 H Plt Count 267 Seg Neutrophils % 85.9 H Lymphocytes % 9.9 L Monocytes % 3.3 Eosinophils % 0.2 Basophils % 0.7 Absolute Neutrophils 10.6 H Absolute Lymphocytes 1.2 Absolute Monocytes 0.4 Absolute Eosinophils 0.0 Absolute Basophils 0.1 Sodium 138.5 Potassium 4.3 Chloride 107 Carbon Dioxide 23 Anion Gap 9 BUN 12 Creatinine 0.64 Est GFR ( Amer) > 60 Est GFR (Non-Af Amer) > 60 Glucose 105 Calcium 7.8 L Urine Color YELLOW Urine Appearance SLIGHTLY-CLOUDY Urine pH 5.0 Ur Specific [place] 1.010 Urine Protein NEGATIVE Urine Glucose (UA) NEGATIVE Urine Ketones NEGATIVE Urine Blood SMALL H Urine Nitrite NEGATIVE Ur Leukocyte Esterase TRACE H Urine WBC (Auto) 1 Urine RBC (Auto) 0 Impressions: Fluoroscopy 11/28/17 00:00 IMPRESSION: IMAGE(S) OBTAINED DURING PROCEDURE. Assessment & Plan - Diagnosis (2) Alcoholic intoxication Qualifiers: Complication of substance-induced condition: uncomplicated Qualified Code(s ): F10.920 - Alcohol use, unspecified with intoxication, uncomplicated Is this a current diagnosis for this admission?: Yes Plan: Patient has been started on Ativan 2 mg IV every 4 as needed and p.o. diazepam. Being hydrated with dextrose and Ringer lactate, thiamine, folic acid, magnesium. We will check her BMP and magnesium in a.m. - Time Critical Time spent with patient: 15-24 minutes Within: within 48 hours - Inpatient Certification Medical Necessity: Need for IV Antibiotics
[2017-11-29] MEDS: LANSOPRAZOLE 30 MG TAB.RAP.DR PO SCH (05:31)
[2017-11-29] MEDS: DIAZEPAM 5 MG TABLET PO SCH ×3 (05:31→21:57)
--- NOTE | 2017-11-29 06:51 | PDOC CONSULTATION ---
Consultation Consult Date: 11/29/17 Consult reason:: Left both bone forearm fracture History of Present Illness Admission Date/PCP: 11/28/17 23:59 History of Present Illness: 62-year-old with a noncontributory past medical history of than alcohol is him who fell and sustained a left both bone forearm fracture. She was evaluated in emergency room where closed reduction was attempted. She was splinted. She is admitted to the hospital now for fracture management. Past Medical History Cardiac Medical History: Reports: Hyperlipidema Pulmonary Medical History: Reports: Asthma, Bronchitis Psychiatric Medical History: Reports: Depression, Post Traumatic Stress Disorder Past Surgical History Past Surgical History: Reports: None Social History Information Source: Patient, [facility] Records Lives with: Family, Spouse/Significant other Smoking Status: Current Every Day Smoker Frequency of Alcohol Use: Heavy Hx Recreational Drug Use: No Hx Prescription Drug Abuse: No - Advance Directive Resuscitation Status: Full Code Family History Family History: Reviewed & Not Pertinent Parental Family History Reviewed: No Children Family History Reviewed: No Sibling(s) Family History Reviewed.: No Medication/Allergy Home Medications: No Home Medications 11/29/17 Allergies/Adverse Reactions: Sulfa (Sulfonamide Antibiotics) Allergy (Verified 08/30/17 13:10) Review of Systems ROS unobtainable: Due to mental status Physical Exam Vital Signs: Temp Pulse Resp BP Pulse Ox 36.8 C 65 14 115/71 96 11/29/17 02:30 11/29/17 02:30 11/29/17 02:30 11/29/17 02:30 11/29/17 02:30 Intake & Output 11/27/17 11/28/17 11/29/17 06:59 06:59 06:59 Intake Total 0 Output Total 0 Balance 0 Weight 75.6 kg Physical Exam: Middle-aged white female lying in hospital bed. She is somewhat somnolent somnolent and difficult to arouse. General appearance: PRESENT: no acute distress Head exam: PRESENT: normocephalic Respiratory exam: PRESENT: unlabored Cardiovascular exam: PRESENT: RRR Pulses: PRESENT: +1 pedal pulses bilateral Vascular exam: PRESENT: normal capillary refill GI/Abdominal exam: PRESENT: soft Rectal exam: PRESENT: deferred Extremities exam: PRESENT: other - Left upper extremity is immobilized in a splint. There is brisk capillary refill. I cannot assess the patient's motor sensory function secondary to mental status and sedation Skin exam: PRESENT: dry, intact, warm. ABSENT: cyanosis, rash Results Laboratory Results: 11/29/17 00:28 11/29/17 00:28 11/29/17 11/29/17 11/29/17 00:28 00:28 00:52 WBC 12.3 H RBC 4.60 Hgb 15.1 Hct 45.7 MCV 99 H MCH 32.9 MCHC 33.1 RDW 14.1 H Plt Count 267 Seg Neutrophils % 85.9 H Lymphocytes % 9.9 L Monocytes % 3.3 Eosinophils % 0.2 Basophils % 0.7 Absolute Neutrophils 10.6 H Absolute Lymphocytes 1.2 Absolute Monocytes 0.4 Absolute Eosinophils 0.0 Absolute Basophils 0.1 Sodium 138.5 Potassium 4.3 Chloride 107 Carbon Dioxide 23 Anion Gap 9 BUN 12 Creatinine 0.64 Est GFR ( Amer) > 60 Est GFR (Non-Af Amer) > 60 Glucose 105 Calcium 7.8 L Urine Color YELLOW Urine Appearance SLIGHTLY-CLOUDY Urine pH 5.0 Ur Specific [place] 1.010 Urine Protein NEGATIVE Urine Glucose (UA) NEGATIVE Urine Ketones NEGATIVE Urine Blood SMALL H Urine Nitrite NEGATIVE Ur Leukocyte Esterase TRACE H Urine WBC (Auto) 1 Urine RBC (Auto) 0 Impressions: Fluoroscopy 11/28/17 00:00 IMPRESSION: IMAGE(S) OBTAINED DURING PROCEDURE. Status: Imported from PACS Assessment & Plan - Diagnosis (1) Fracture of left radius and ulna Qualifiers: Encounter type: initial encounter Fracture type: closed Qualified Code(s) : S52.92XA - Unspecified fracture of left forearm, initial encounter for closed fracture; S52.202A - Unspecified fracture of shaft of left ulna, initial encounter for closed fracture; S52.202A - Unspecified fracture of shaft of left ulna, initial encounter for closed fracture Is this a current diagnosis for this admission?: Yes Plan: 52-year-old white female with a left both bone forearm fracture. Tentative plan will be to proceed with an open reduction internal fixation under choice anesthesia. Patient will need careful monitoring for potential withdrawal from alcoholism - Time Time Spent: 50 to 70 Minutes Anticipated discharge: Home with Homehealth Within: Other
--- NOTE | 2017-11-29 07:35 | RADIOLOGY REPORT (SQ) ---
EXAM DESCRIPTION: FOREARM LEFT CLINICAL HISTORY: 52 years, Female, POST REDUCTION COMPARISON: None. NUMBER OF VIEWS: 2 LIMITATIONS: None. FINDINGS: Interval reduction with improved alignment of previously described fractures of the left forearm is seen through casting-bandaging. IMPRESSION: Fracture follow-up.
[2017-11-29] MEDS ORDERED: CEFAZOLIN SODIUM 2 GM in NORMAL SALINE 100 ML IV PRN (08:19)
[2017-11-29] MEDS ORDERED: RINGERS SOLUTION,LACTATED 1,000 ML IV PRN ×2 (08:20→17:21)
[2017-11-29] MEDS: THIAMINE HCL 100 MG, FOLIC ACID 1 MG in NORMAL SALINE 250 ML IV SCH (09:23)
[2017-11-29] MEDS: ENOXAPARIN SODIUM INJ 40 MG/0.4 ML DISP.SYRIN SUBCUT SCH (09:25)
--- NOTE | 2017-11-29 13:39 | EKG REPORT ---
SEVERITY:- ABNORMAL ECG - SINUS RHYTHM NONSPECIFIC T ABNORMALITIES, ANT-LAT LEADS : Confirmed by: Orestes Floyd MD 29-Nov-2017 13:37:52
[2017-11-29] MEDS ORDERED: BUPIVACAINE HCL 0.25% /EPINEPHRINE INJ/PF 30 ML SDV ONE (13:45)
[2017-11-29] MEDS ORDERED: MIDAZOLAM 2 MG/2 ML INJ ONE (13:51)
[2017-11-29] MEDS ORDERED: FENTANYL CITRATE INJ/PF 250 MCG/5 ML AMPULE ONE (13:51)
[2017-11-29] MEDS ORDERED: FENTANYL CITRATE INJ/PF 100 MCG/2 ML AMPUL ONE (13:51)
[2017-11-29] MEDS ORDERED: PROPOFOL INJ 200 MG/20 ML VIAL IV ONE (13:52)
[2017-11-29] MEDS ORDERED: ACETAMINOPHEN 100 ML IV ONE (13:52)
[2017-11-29] MEDS ORDERED: ONDANSETRON HCL INJ/PF 4 MG/2 ML SDV ONE (13:52)
[2017-11-29] MEDS ORDERED: EPHEDRINE SULFATE INJ 50 MG/1 ML AMPULE ONE (13:52)
[2017-11-29] MEDS ORDERED: SUCCINYLCHOLINE CHLORIDE INJ 200 MG/10 ML VIAL ONE (14:56)
[2017-11-29] MEDS ORDERED: MEPERIDINE HCL/PF INJ 25 MG/1 ML DISP.SYRIN IV PRN (15:51)
[2017-11-29] MEDS ORDERED: FENTANYL CITRATE INJ/PF 100 MCG/2 ML AMPUL IV PRN ×3 (15:51)
[2017-11-29] MEDS ORDERED: PROMETHAZINE HCL INJ 25 MG/1 ML VIAL IV PRN ×2 (15:51)
[2017-11-29] MEDS ORDERED: DIPHENHYDRAMINE HCL 50 MG/ML VIAL IV PRN (15:51)
--- NOTE | 2017-11-29 16:39 | Operative Report ---
Operative Report DATE OF SURGERY: 11/29/17 PREOPERATIVE DIAGNOSIS: Open grade 2 left both bone forearm fracture OPERATION: Open reduction internal fixation of left both bone forearm fracture. Debridement of open fracture bed including skin, subcutaneous tissue, fascia, and bone. SURGEON: KHADRA SINGH ANESTHESIA: GA TISSUE REMOVED OR ALTERED: Skin, subcutaneous fat, fascia, and bone ESTIMATED BLOOD LOSS: Minimal PROCEDURE: With the patient supine and operative table the existing posterior splint is removed. I was surprised to find a transverse laceration at the junction of the proximal two thirds and distal one third of the ulna over its ulnar border. This clearly communicates with the underlying fracture. The extremity is subsequent prepped and draped in sterile fashion. The limb was elevated for exsanguination. Tourniquet inflated 280 torr. The open fracture/laceration is debrided with an elliptical incision and extending approximately from one corner and distally from the other corner. The underlying fracture is identified. Is debrided meticulously including bone with a rondure. The fracture was reduced under direct visualization. A 7 hole 3.5 mm titanium Regent plate is placed on the volar surface of the ulna and secured with 3 screws proximally, 3 screws distally, and a interfrag screw through the central hole. A second incision was now made over the volar surface of the midforearm for a junction of the proximal and middle thirds radius fracture. A volar approach to his taken with the mobile wad retracted dorsally. Underlying fracture is identified and reduced under direct visualization. This a similar 7 hole titanium 3.5 mm Chetan plate is applied to the volar surface and secured with 3 screws proximally and 3 screws distally. At this point the tourniquet was deflated and hemostasis obtained with bipolar cautery. Wound is irrigated with bulb lavage. Is closed using interrupted Vicryl followed by jm. A sterile compressive dressing was applied and the patient returned to PACU in satisfactory condition.
[2017-11-29] MEDS ORDERED: ALBUTEROL SULFATE 0.083% NEB 2.5 MG/3 ML AMPUL NEB ONE (16:47)
[2017-11-29] MEDS ORDERED: IPRATROPIUM/ALBUTEROL 0.5-2.5 MG/3 ML AMPUL NEB ONE (16:48)
--- NOTE | 2017-11-29 16:52 | RADIOLOGY REPORT (SQ) ---
EXAM DESCRIPTION: NO CHG FLUORO; FOREARM LEFT COMPLETED DATE/TIME: 11/29/2017 4:35 pm REASON FOR STUDY: ORIF LEFT FOREARM COMPARISON: None. FLUOROSCOPY TIME: 0.1 minute 3 images saved to PACS. TECHNIQUE: Intra-operative images acquired during surgical procedure to evaluate progress. NUMBER OF IMAGES: 3 LIMITATIONS: None. FINDINGS: Selected images from plate and screw fixation of fractures of the radius and ulna. Alignm ent is anatomic. IMPRESSION: IMAGE(S) OBTAINED DURING PROCEDURE. COMMENT: Quality ID 145: Final reports for procedures using fluoroscopy that document radiation exp osure indices, or exposure time and number of fluorographic images (if radiation exposure indices are not available) Please consult full operative report of the attending physician for description of the procedure. TECHNICAL DOCUMENTATION: JOB ID: [id number] [employer] All Rights Reserved Reading location - IP/workstation name: [email or web address]
--- NOTE | 2017-11-29 16:52 | RADIOLOGY REPORT (SQ) ---
EXAM DESCRIPTION: NO CHG FLUORO; FOREARM LEFT COMPLETED DATE/TIME: 11/29/2017 4:35 pm REASON FOR STUDY: ORIF LEFT FOREARM COMPARISON: None. FLUOROSCOPY TIME: 0.1 minute 3 images saved to PACS. TECHNIQUE: Intra-operative images acquired during surgical procedure to evaluate progress. NUMBER OF IMAGES: 3 LIMITATIONS: None. FINDINGS: Selected images from plate and screw fixation of fractures of the radius and ulna. Alignm ent is anatomic. IMPRESSION: IMAGE(S) OBTAINED DURING PROCEDURE. COMMENT: Quality ID 145: Final reports for procedures using fluoroscopy that document radiation exp osure indices, or exposure time and number of fluorographic images (if radiation exposure indices are not available) Please consult full operative report of the attending physician for description of the procedure. TECHNICAL DOCUMENTATION: JOB ID: [id number] [employer]- All Rights Reserved Reading location - IP/workstation name: [email or web address]
--- NOTE | 2017-11-29 20:12 | PDOC PROGRESS REPORT ---
Subjective Progress Note for:: 11/29/17 Subjective:: NYA PRESCOTT is a 52 year old female patient brought by EMS after she sustained accidental fall and broke her left arm. Patient had alcohol intoxication in the ED She was subsequently admitted on the hospitalist service with an orthopedic consult 11/29 patient underwent surgery Upon her return she is quite lethargic but arousable appears comfortable No fever stable vital signs Reason For Visit: FRACTURE OF LEFT RADIUS AND ULNA, ALCOHOL Physical Exam Vital Signs: Temp Pulse Resp BP Pulse Ox 98.3 F 58 L 12 121/90 H 97 11/29/17 18:30 11/29/17 18:30 11/29/17 18:30 11/29/17 18:30 11/29/17 18:30 Intake & Output 11/28/17 11/29/17 11/30/17 00:59 00:59 00:59 Intake Total 1100 Output Total 1854 Balance -754 Weight 75.6 kg General appearance: PRESENT: no acute distress Head exam: PRESENT: atraumatic, normocephalic Neck exam: ABSENT: carotid bruit, JVD, lymphadenopathy, thyromegaly Respiratory exam: PRESENT: clear to auscultation heber. ABSENT: rales, rhonchi, wheezes Cardiovascular exam: PRESENT: RRR. ABSENT: diastolic murmur, rubs, systolic murmur Pulses: PRESENT: normal dorsalis pedis pul Extremities exam: PRESENT: other - Left upper extremity is in a splint Neurological exam: PRESENT: other - Lethargic Resting peacefully Results Laboratory Results: 11/29/17 00:28 11/29/17 00:28 11/29/17 11/29/17 11/29/17 00:28 00:28 00:52 WBC 12.3 H RBC 4.60 Hgb 15.1 Hct 45.7 MCV 99 H MCH 32.9 MCHC 33.1 RDW 14.1 H Plt Count 267 Seg Neutrophils % 85.9 H Lymphocytes % 9.9 L Monocytes % 3.3 Eosinophils % 0.2 Basophils % 0.7 Absolute Neutrophils 10.6 H Absolute Lymphocytes 1.2 Absolute Monocytes 0.4 Absolute Eosinophils 0.0 Absolute Basophils 0.1 Sodium 138.5 Potassium 4.3 Chloride 107 Carbon Dioxide 23 Anion Gap 9 BUN 12 Creatinine 0.64 Est GFR ( Amer) > 60 Est GFR (Non-Af Amer) > 60 Glucose 105 Calcium 7.8 L Urine Color YELLOW Urine Appearance SLIGHTLY-CLOUDY Urine pH 5.0 Ur Specific [place] 1.010 Urine Protein NEGATIVE Urine Glucose (UA) NEGATIVE Urine Ketones NEGATIVE Urine Blood SMALL H Urine Nitrite NEGATIVE Ur Leukocyte Esterase TRACE H Urine WBC (Auto) 1 Urine RBC (Auto) 0 Impressions: Fluoroscopy 11/29/17 00:00 IMPRESSION: IMAGE(S) OBTAINED DURING PROCEDURE. Forearm X-Ray 11/29/17 00:00 IMPRESSION: IMAGE(S) OBTAINED DURING PROCEDURE. Assessment & Plan - Diagnosis (1) Alcoholic intoxication Qualifiers: Complication of substance-induced condition: uncomplicated Qualified Code(s ): F10.920 - Alcohol use, unspecified with intoxication, uncomplicated Is this a current diagnosis for this admission?: Yes (2) Fall Qualifiers: Encounter type: initial encounter Qualified Code(s): W19.XXXA - Unspecified fall, initial encounter Is this a current diagnosis for this admission?: Yes (3) Fx radius/ulna shaft-closed Is this a current diagnosis for this admission?: Yes - Time Time Spent with patient: Continue alcohol detox protocol Management as per orthopedics Time Spent with patient: 25-34 minutes Medications reviewed and adjusted accordingly: Yes Within: within 36 hours - Inpatient Certification Based on my medical assessment, after consideration of the patient's comorbidities, presenting symptoms, or acuity I expect that the services needed warrant INPATIENT care.: Yes I certify that my determination is in accordance with my understanding of Medicare's requirements for reasonable and necessary INPATIENT services [42 CFR 412.3e].: Yes Medical Necessity: Need For IV Fluids, Need for Pain Control, Other - Alcohol detox protocol Post Hospital Care: D/C Guest Services Lead Documentation - Plan Summary Plan Summary: Continue to monitor ; alcohol detox protocol
[2017-11-29] MEDS: CEFAZOLIN SODIUM 2 GM in NORMAL SALINE 100 ML IV SCH (21:56)
[2017-11-29] MEDS: KETOROLAC TROMETHAMINE INJ/PF 30 MG/1 ML SDV IV PRN (22:54)
[2017-11-30] MEDS: LANSOPRAZOLE 30 MG TAB.RAP.DR PO SCH (05:18)
[2017-11-30] MEDS: CEFAZOLIN SODIUM 2 GM in NORMAL SALINE 100 ML IV SCH (05:18)
[2017-11-30] MEDS: DIAZEPAM 5 MG TABLET PO SCH ×3 (05:18→21:03)
[2017-11-30 06:22] LABS: ABSOLUTE BASOPHILS # (AUTO) 0.1 10^3/uL (0.0-0.2); ABSOLUTE EOSINOPHILS # (AUTO) 0.1 10^3/uL (0.0-0.6); ABSOLUTE LYMPHOCYTES (AUTO) 1.8 10^3/uL (0.5-4.7); ABSOLUTE MONOCYTES (AUTO) 1.1 10^3/uL (0.1-1.4); ABSOLUTE NEUT (AUTO) 6.6 10^3/uL (1.7-8.2); HEMATOCRIT 38.5 % (36.0-47.0); HEMOGLOBIN 13.2 g/dL (12.0-15.5); LYMPHOCYTES % (AUTO) 18.7 % (13-45); MEAN CORPUSCULAR HEMOGLOBIN 33.4 pg (27.0-33.4); MEAN CORPUSCULAR HGB CONC 34.2 g/dL (32.0-36.0); MEAN CORPUSCULAR VOLUME 98 fl (80-97); MONOCYTES % (AUTO) 11.7 % (3-13); PLATELET COUNT 216 10^3/uL (150-450); RED BLOOD COUNT 3.95 10^6/uL (3.72-5.28); RED CELL DISTRIBUTION WIDTH 13.8 % (11.5-14.0); SEGMENTED NEUTROPHILS % (AUTO) 67.6 % (42-78); TOTAL CELLS COUNTED % (AUTO) 100 %; WHITE BLOOD COUNT 9.8 10^3/uL (4.0-10.5)
[2017-11-30 06:44] LABS: ANION GAP 6 (5-19); BLOOD UREA NITROGEN 11 mg/dL (7-20); CALCIUM 8.7 mg/dL (8.4-10.2); CARBON DIOXIDE 25 mmol/L (22-30); CHLORIDE 105 mmol/L (98-107); GLUCOSE 103 mg/dL (75-110); POTASSIUM 4.4 mmol/L (3.6-5.0); SODIUM 136.4 mmol/L (137-145)
--- NOTE | 2017-11-30 07:11 | PDOC PROGRESS REPORT ---
Subjective Progress Note for:: 11/30/17 Reason For Visit: FRACTURE OF LEFT RADIUS AND ULNA, ALCOHOL 52-year-old white female postop day 1 left open grade 2 both bone forearm fracture fixation Physical Exam Vital Signs: Temp Pulse Resp BP Pulse Ox 37.1 C 56 L 15 126/61 H 97 11/29/17 23:00 11/29/17 23:00 11/29/17 23:00 11/29/17 23:00 11/29/17 23:00 Intake & Output 11/29/17 11/30/17 12/01/17 06:59 06:59 06:59 Intake Total 0 4514 Output Total 0 2354 Balance 0 2160 Weight 75.6 kg Physical Exam: Patient somewhat somnolent but is arousable. General appearance: PRESENT: no acute distress Head exam: PRESENT: normocephalic Respiratory exam: PRESENT: unlabored Cardiovascular exam: PRESENT: RRR Vascular exam: PRESENT: normal capillary refill GI/Abdominal exam: PRESENT: soft Rectal exam: PRESENT: deferred Musculoskeletal exam: PRESENT: other - Left hand swelling is apparent. Patient is able to demonstrate intact but limited except flexion extension of the digits as well as the thumb. There is brisk capillary refill. Neurological exam: PRESENT: alert, awake, oriented to person, oriented to place , oriented to time, oriented to situation. ABSENT: motor sensory deficit Psychiatric exam: PRESENT: appropriate affect, normal mood. ABSENT: homicidal ideation, suicidal ideation Skin exam: PRESENT: dry, intact, warm. ABSENT: cyanosis, rash Results Laboratory Results: 11/30/17 05:57 11/30/17 05:57 11/30/17 11/30/17 05:57 05:57 WBC 9.8 RBC 3.95 Hgb 13.2 Hct 38.5 MCV 98 H MCH 33.4 MCHC 34.2 RDW 13.8 Plt Count 216 Seg Neutrophils % 67.6 Lymphocytes % 18.7 Monocytes % 11.7 Eosinophils % 1.0 Basophils % 1.0 Absolute Neutrophils 6.6 Absolute Lymphocytes 1.8 Absolute Monocytes 1.1 Absolute Eosinophils 0.1 Absolute Basophils 0.1 Sodium 136.4 L Potassium 4.4 Chloride 105 Carbon Dioxide 25 Anion Gap 6 BUN 11 Creatinine 0.69 Est GFR ( Amer) > 60 Est GFR (Non-Af Amer) > 60 Glucose 103 Calcium 8.7 Magnesium 2.0 Impressions: Fluoroscopy 11/29/17 00:00 IMPRESSION: IMAGE(S) OBTAINED DURING PROCEDURE. Forearm X-Ray 11/29/17 00:00 IMPRESSION: IMAGE(S) OBTAINED DURING PROCEDURE. Status: Imported from PACS Assessment & Plan - Diagnosis (1) Fracture of left radius and ulna Qualifiers: Encounter type: initial encounter Fracture type: closed Qualified Code(s) : S52.92XA - Unspecified fracture of left forearm, initial encounter for closed fracture; S52.202A - Unspecified fracture of shaft of left ulna, initial encounter for closed fracture; S52.202A - Unspecified fracture of shaft of left ulna, initial encounter for closed fracture Is this a current diagnosis for this admission?: Yes Plan: Patient status post open reduction internal fixation left both bone forearm fracture. Patient will be seen by occupational therapy for active assisted range of motion of the hand and fingers (2) Alcoholic intoxication Qualifiers: Complication of substance-induced condition: uncomplicated Qualified Code(s ): F10.920 - Alcohol use, unspecified with intoxication, uncomplicated Is this a current diagnosis for this admission?: Yes Plan: No evidence of withdrawal this morning - Time Time Spent with patient: 15-24 minutes - Plan Summary Plan Summary: 52-year-old white female status post open reduction internal fixation of a left both bone forearm fracture. Patient can be discharged from an orthopedic standpoint when medical conditions permit.
--- NOTE | 2017-11-30 07:37 | Physician Advisory Note ---
Physician Advisor ProgressNote .: Pursuant to the plan for [facility], I have reviewed the medical record for this patient. Physician Advisor Statement: Status: Pt had ORIF surgery on arm 11/29. She developed mild hypoxemia to 90% on 11/29, and O2 tx was ordered. If she cannot go home this AM for medical reasons, please document them & may consider change to Inpatient status. Thanks! CK
[2017-11-30] MEDS: ENOXAPARIN SODIUM INJ 40 MG/0.4 ML DISP.SYRIN SUBCUT SCH (09:46)
[2017-11-30] MEDS: OXYCODONE-ACETAMINOPHEN 5-325 MG TABLET PO PRN ×2 (09:47→17:52)
[2017-11-30] MEDS: THIAMINE HCL 100 MG, FOLIC ACID 1 MG in NORMAL SALINE 250 ML IV SCH (12:02)
--- NOTE | 2017-11-30 17:57 | PDOC PROGRESS REPORT ---
Subjective Progress Note for:: 11/30/17 Subjective:: POD #1. Continues to endorse arm pain with movement. Worked with OT earlier today. Otherwise doing OK, Denies fevers, chills, CP, SOB, abdominal pain, NV. OK with discharge on 12/01 Reason For Visit: FRACTURE OF LEFT RADIUS AND ULNA, ALCOHOL Physical Exam Vital Signs: Temp Pulse Resp BP Pulse Ox 100.3 F 74 16 152/79 H 94 11/30/17 11:00 11/30/17 11:00 11/30/17 11:00 11/30/17 11:00 11/30/17 11:00 Intake & Output 11/29/17 11/30/17 12/01/17 06:59 06:59 06:59 Intake Total 0 4514 Output Total 0 2354 Balance 0 2160 Weight 75.6 kg 79.6 kg General appearance: PRESENT: no acute distress, cooperative, well-developed, well-nourished Mouth exam: PRESENT: moist Respiratory exam: PRESENT: unlabored. ABSENT: tachypnea Cardiovascular exam: PRESENT: +S1, +S2. ABSENT: tachycardia GI/Abdominal exam: PRESENT: tenderness. ABSENT: other Extremities exam: PRESENT: other - Left hand wrapped. Moving fingers spontaneously. Good radial pulse and coloration. Neurological exam: PRESENT: alert, awake, CN II-XII grossly intact Psychiatric exam: PRESENT: appropriate affect Skin exam: PRESENT: dry, warm Results Laboratory Results: 11/30/17 05:57 11/30/17 05:57 11/30/17 11/30/17 05:57 05:57 WBC 9.8 RBC 3.95 Hgb 13.2 Hct 38.5 MCV 98 H MCH 33.4 MCHC 34.2 RDW 13.8 Plt Count 216 Seg Neutrophils % 67.6 Lymphocytes % 18.7 Monocytes % 11.7 Eosinophils % 1.0 Basophils % 1.0 Absolute Neutrophils 6.6 Absolute Lymphocytes 1.8 Absolute Monocytes 1.1 Absolute Eosinophils 0.1 Absolute Basophils 0.1 Sodium 136.4 L Potassium 4.4 Chloride 105 Carbon Dioxide 25 Anion Gap 6 BUN 11 Creatinine 0.69 Est GFR ( Amer) > 60 Est GFR (Non-Af Amer) > 60 Glucose 103 Calcium 8.7 Magnesium 2.0 Impressions: Fluoroscopy 11/29/17 00:00 IMPRESSION: IMAGE(S) OBTAINED DURING PROCEDURE. Forearm X-Ray 11/29/17 00:00 IMPRESSION: IMAGE(S) OBTAINED DURING PROCEDURE. Assessment & Plan - Diagnosis (1) Fracture of left radius and ulna Qualifiers: Encounter type: initial encounter Fracture type: closed Qualified Code(s) : S52.92XA - Unspecified fracture of left forearm, initial encounter for closed fracture; S52.202A - Unspecified fracture of shaft of left ulna, initial encounter for closed fracture; S52.202A - Unspecified fracture of shaft of left ulna, initial encounter for closed fracture Is this a current diagnosis for this admission?: Yes Plan: S/p ORIF POD #1 by ortho. Doing well clinically except for pain. OK to discharge from ortho standpoint - Continue pain tx with Oxycodone 10mg q4 hours PRN. Also has Toradol ordered - Will need to discuss with ortho if outpatient PT/OT is required - D/c to home on 12/01 - Pt requesting work excuse note (2) Alcoholic intoxication Qualifiers: Complication of substance-induced condition: uncomplicated Qualified Code(s ): F10.920 - Alcohol use, unspecified with intoxication, uncomplicated Is this a current diagnosis for this admission?: Yes Plan: Was drinking when fell. Denies heavy EtOH abuse. (3) Fall Qualifiers: Encounter type: initial encounter Qualified Code(s): W19.XXXA - Unspecified fall, initial encounter Is this a current diagnosis for this admission?: Yes Plan: Per above. - Time Time Spent with patient: Less than 15 minutes Anticipated discharge: Home Within: within 24 hours - Remain OBS, will discharge on 12/01
[2017-11-30] MEDS: KETOROLAC TROMETHAMINE INJ/PF 30 MG/1 ML SDV IV PRN (20:56)
[2017-12-01] MEDS: DIAZEPAM 5 MG TABLET PO SCH ×3 (05:42→20:45)
[2017-12-01] MEDS: LANSOPRAZOLE 30 MG TAB.RAP.DR PO SCH (05:43)
[2017-12-01] MEDS: OXYCODONE-ACETAMINOPHEN 5-325 MG TABLET PO PRN ×3 (05:43→18:36)
--- NOTE | 2017-12-01 07:03 | PDOC PROGRESS REPORT ---
Subjective Progress Note for:: 12/01/17 Reason For Visit: FRACTURE OF LEFT RADIUS AND ULNA, ALCOHOL 52-year-old white female postop day 2 from an open reduction internal fixation of an open grade 2 left both bone forearm fracture Physical Exam Vital Signs: Temp Pulse Resp BP Pulse Ox 36.8 C 58 L 18 105/66 97 11/30/17 23:42 11/30/17 23:42 11/30/17 23:42 11/30/17 23:42 11/30/17 23:42 Intake & Output 11/30/17 12/01/17 12/02/17 06:59 06:59 06:59 Intake Total 4514 1706 Output Total 2354 2710 Balance 2160 -1004 Weight 79.6 kg 79.4 kg Physical Exam: Patient somewhat somnolent but does respond verbally General appearance: PRESENT: mild distress Head exam: PRESENT: normocephalic Respiratory exam: PRESENT: unlabored Cardiovascular exam: PRESENT: RRR Vascular exam: PRESENT: normal capillary refill GI/Abdominal exam: PRESENT: soft Rectal exam: PRESENT: deferred Extremities exam: PRESENT: other - Compressive dressing is taken off the left upper extremity. Wounds are well approximated with jm. OpSite dressings placed 2. Really have difficulty getting cooperation to assess neurologic function in the hand. There is considerable swelling motor function in terms of wrist dorsiflexion and thumb extension are difficult to elicit. There is brisk capillary refill in each of the digits. Neurological exam: PRESENT: alert, awake, oriented to person, oriented to place , oriented to time, oriented to situation. ABSENT: motor sensory deficit Psychiatric exam: PRESENT: appropriate affect, normal mood. ABSENT: homicidal ideation, suicidal ideation Skin exam: PRESENT: dry, intact, warm. ABSENT: cyanosis, rash Results Laboratory Results: 11/30/17 05:57 11/30/17 05:57 Impressions: Fluoroscopy 11/29/17 00:00 IMPRESSION: IMAGE(S) OBTAINED DURING PROCEDURE. Forearm X-Ray 11/29/17 00:00 IMPRESSION: IMAGE(S) OBTAINED DURING PROCEDURE. Status: Imported from PACS Assessment & Plan - Diagnosis (1) Fracture of left radius and ulna Qualifiers: Encounter type: initial encounter Fracture type: closed Qualified Code(s) : S52.92XA - Unspecified fracture of left forearm, initial encounter for closed fracture; S52.202A - Unspecified fracture of shaft of left ulna, initial encounter for closed fracture; S52.202A - Unspecified fracture of shaft of left ulna, initial encounter for closed fracture Is this a current diagnosis for this admission?: Yes Plan: Postop day 2 ORIF both bone forearm fracture. Ongoing antibiotic administration because this was an open fracture. (2) Alcoholic intoxication Qualifiers: Complication of substance-induced condition: uncomplicated Qualified Code(s ): F10.920 - Alcohol use, unspecified with intoxication, uncomplicated Is this a current diagnosis for this admission?: Yes - Time Time Spent with patient: 15-24 minutes Anticipated discharge: Home with Homehealth - Patient can be discharged home from an orthopedic standpoint. Follow-up with Dr. Jenkins [facility] for surgery in 10 days for wound evaluation
[2017-12-01] MEDS: ENOXAPARIN SODIUM INJ 40 MG/0.4 ML DISP.SYRIN SUBCUT SCH (10:31)
[2017-12-01] MEDS: THIAMINE HCL 100 MG, FOLIC ACID 1 MG in NORMAL SALINE 250 ML IV SCH (10:32)
--- NOTE | 2017-12-01 12:29 | PDOC PROGRESS REPORT ---
Subjective Progress Note for:: 12/01/17 Subjective:: POD #2. Continues to endorse arm pain left arm with movement. Worked with OT earlier today. Otherwise doing OK, Denies fevers, chills, CP, SOB, abdominal pain, NV. Reason For Visit: FRACTURE OF LEFT RADIUS AND ULNA, ALCOHOL Physical Exam Vital Signs: Temp Pulse Resp BP Pulse Ox 98.7 F 57 L 16 121/66 96 12/01/17 12:00 12/01/17 12:00 12/01/17 12:00 12/01/17 12:00 12/01/17 12:00 Intake & Output 11/30/17 12/01/17 12/02/17 06:59 06:59 06:59 Intake Total 4514 1706 Output Total 2354 2710 Balance 2160 -1004 Weight 79.6 kg 79.4 kg GEN: NAD, well-developed, well-nourished CV: RRR, NL S1S2 LUNGS: CTA bilaterally ABDOMEN Soft, NT, +BS EXTERMITIES: No e/c/c, Left hand wrapped. Moving fingers spontaneously. Good radial pulse and coloration. NEURO: Alert, oriented 3, nonfocal Results Laboratory Results: 11/30/17 05:57 11/30/17 05:57 Impressions: Fluoroscopy 11/29/17 00:00 IMPRESSION: IMAGE(S) OBTAINED DURING PROCEDURE. Forearm X-Ray 11/29/17 00:00 IMPRESSION: IMAGE(S) OBTAINED DURING PROCEDURE. Assessment & Plan - Plan Summary Plan Summary: (1) Fracture of left radius and ulna Qualifiers: Encounter type: initial encounter Fracture type: closed Qualified Code(s) : S52.92XA - Unspecified fracture of left forearm, initial encounter for closed fracture; S52.202A - Unspecified fracture of shaft of left ulna, initial encounter for closed fracture; S52.202A - Unspecified fracture of shaft of left ulna, initial encounter for closed fracture Is this a current diagnosis for this admission?: Yes Plan: S/p ORIF POD #2 by ortho. Doing well clinically except for pain. Ortho recommend ongoing antibiotics due to open fracture, but noted patient currently not on antibiotics. Patient states unable to go home today. Will start Ancef for another 24 hours while patient is remains inpatient. Possible home in a.m. if stable. - Continue pain tx with Oxycodone 10mg q4 hours PRN. Also has Toradol as needed. - Will need to discuss with ortho if outpatient PT/OT is required - Pt requesting work excuse note (2) Alcoholic intoxication Qualifiers: Complication of substance-induced condition: uncomplicated Qualified Code(s ): F10.920 - Alcohol use, unspecified with intoxication, uncomplicated Is this a current diagnosis for this admission?: Yes Plan: Was drinking when fell. Denies heavy EtOH abuse. (3) Fall Qualifiers: Encounter type: initial encounter Qualified Code(s): W19.XXXA - Unspecified fall, initial encounter Is this a current diagnosis for this admission?: Yes Plan: Per above.
[2017-12-01] MEDS: CEFAZOLIN SODIUM 2 GM in NORMAL SALINE 100 ML IV SCH ×2 (15:00→20:43)
[2017-12-01] MEDS ORDERED: CEFAZOLIN 2 GM/D5W RTU 2 GM/50 ML RTUPB IV SCH (18:00)
[2017-12-02] MEDS: CEFAZOLIN SODIUM 2 GM in NORMAL SALINE 100 ML IV SCH ×3 (02:20→14:40)
[2017-12-02] MEDS: OXYCODONE-ACETAMINOPHEN 5-325 MG TABLET PO PRN ×2 (05:29→09:47)
[2017-12-02] MEDS: LANSOPRAZOLE 30 MG TAB.RAP.DR PO SCH (05:30)
[2017-12-02] MEDS: DIAZEPAM 5 MG TABLET PO SCH ×2 (05:30→14:05)
--- NOTE | 2017-12-02 06:17 | PDOC PROGRESS REPORT ---
Subjective Progress Note for:: 12/02/17 Reason For Visit: FRACTURE LEFT RADIUS,ALCOHOL INTOXICATION 52-year-old white female status post open reduction internal fixation of a left grade 2 open both bone forearm fracture Physical Exam Vital Signs: Temp Pulse Resp BP Pulse Ox 37.1 C 73 17 118/69 95 12/01/17 23:36 12/01/17 23:36 12/01/17 23:36 12/01/17 23:36 12/01/17 23:36 Intake & Output 11/30/17 12/01/17 12/02/17 06:59 06:59 06:59 Intake Total 300 Balance 300 Weight 79.4 kg General appearance: PRESENT: mild distress Head exam: PRESENT: normocephalic Respiratory exam: PRESENT: unlabored Cardiovascular exam: PRESENT: RRR Pulses: PRESENT: normal radial pulses Extremities exam: PRESENT: other - Left upper extremity dressings are clean dry and intact. There continues to be considerable swelling about the hand which limits active range of motion as well as accurate neurologic assessment. I believe this point that the posterior interosseous nerve is functional but limited by pain. Neurological exam: PRESENT: alert, awake, oriented to person, oriented to place , oriented to time, oriented to situation. ABSENT: motor sensory deficit Psychiatric exam: PRESENT: appropriate affect, normal mood. ABSENT: homicidal ideation, suicidal ideation Skin exam: PRESENT: dry, intact, warm. ABSENT: cyanosis, rash Results Impressions: Fluoroscopy 11/29/17 00:00 IMPRESSION: IMAGE(S) OBTAINED DURING PROCEDURE. Forearm X-Ray 11/29/17 00:00 IMPRESSION: IMAGE(S) OBTAINED DURING PROCEDURE. Assessment & Plan - Diagnosis (1) Fracture of left radius and ulna Qualifiers: Encounter type: initial encounter Fracture type: closed Qualified Code(s) : S52.92XA - Unspecified fracture of left forearm, initial encounter for closed fracture; S52.202A - Unspecified fracture of shaft of left ulna, initial encounter for closed fracture; S52.202A - Unspecified fracture of shaft of left ulna, initial encounter for closed fracture Is this a current diagnosis for this admission?: Yes Plan: Healing. Patient working with occupational therapy on regaining range of motion. Patient instructed in active assisted range of motion program using her contralateral hand. (2) Alcoholic intoxication Qualifiers: Complication of substance-induced condition: uncomplicated Qualified Code(s ): F10.920 - Alcohol use, unspecified with intoxication, uncomplicated Is this a current diagnosis for this admission?: Yes - Time Time Spent with patient: 15-24 minutes Anticipated discharge: Home with Homehealth, Other - When medically stable. Follow-up with Dr. Jenkins and [facility] for surgery in 7-10 days
[2017-12-02 06:44] LABS: ABSOLUTE BASOPHILS # (AUTO) 0.1 10^3/uL (0.0-0.2); ABSOLUTE EOSINOPHILS # (AUTO) 0.3 10^3/uL (0.0-0.6); ABSOLUTE LYMPHOCYTES (AUTO) 2.2 10^3/uL (0.5-4.7); ABSOLUTE MONOCYTES (AUTO) 0.9 10^3/uL (0.1-1.4); ABSOLUTE NEUT (AUTO) 3.1 10^3/uL (1.7-8.2); BASOPHILS % (AUTO) 1.1 % (0-2); EOSINOPHILS % (AUTO) 4.7 % (0-6); HEMATOCRIT 36.1 % (36.0-47.0); HEMOGLOBIN 12.2 g/dL (12.0-15.5); LYMPHOCYTES % (AUTO) 34.1 % (13-45); MEAN CORPUSCULAR HEMOGLOBIN 33.3 pg (27.0-33.4); MEAN CORPUSCULAR HGB CONC 33.9 g/dL (32.0-36.0); MEAN CORPUSCULAR VOLUME 98 fl (80-97); MONOCYTES % (AUTO) 13.1 % (3-13); PLATELET COUNT 219 10^3/uL (150-450); RED BLOOD COUNT 3.67 10^6/uL (3.72-5.28); RED CELL DISTRIBUTION WIDTH 13.5 % (11.5-14.0); TOTAL CELLS COUNTED % (AUTO) 100 %; WHITE BLOOD COUNT 6.5 10^3/uL (4.0-10.5)
[2017-12-02 07:08] LABS: ANION GAP 9 (5-19); BLOOD UREA NITROGEN 13 mg/dL (7-20); CALCIUM 8.5 mg/dL (8.4-10.2); CARBON DIOXIDE 27 mmol/L (22-30); CHLORIDE 108 mmol/L (98-107); GLUCOSE 107 mg/dL (75-110); SODIUM 143.7 mmol/L (137-145)
[2017-12-02] MEDS: ENOXAPARIN SODIUM INJ 40 MG/0.4 ML DISP.SYRIN SUBCUT SCH (09:47)
[2017-12-02] MEDS: THIAMINE HCL 100 MG, FOLIC ACID 1 MG in NORMAL SALINE 250 ML IV SCH (10:43)
[2017-12-02 16:46] VITALS: BP 115/71
[2017-12-03] MEDS ORDERED: LANSOPRAZOLE 30 MG TAB.RAP.DR PO SCH (06:00)
== END 2017-12-02 17:32 | disposition home or self-care (01) | DRG 511 ==
LOC: ER 20:53 → EH 23:59 → INTOOBSV 23:59 → 5 11-29 02:37 → OBSVTOIN 12-01 20:52
PROVIDERS: ADMIT Internal Medicine; ATTEND Internal Medicine
PROC: 0PSLXZZ Reposition Left Ulna, External Approach (ICD-10-PCS; 2017-11-28)
PROC: 0PSJXZZ Reposition Left Radius, External Approach (ICD-10-PCS; 2017-11-28)
PROC: 0PSL04Z Reposition Left Ulna with Internal Fixation Device, Open Approach (ICD-10-PCS; 2017-11-29)
PROC: 0PSJ04Z Reposition Left Radius with Internal Fixation Device, Open Approach (ICD-10-PCS; principal; 2017-11-29 15:45)
DX: S52.302A Unspecified fracture of shaft of left radius, initial encounter for closed fracture (principal); D69.3 Immune thrombocytopenic purpura; S52.202A Unspecified fracture of shaft of left ulna, initial encounter for closed fracture; F10.120 Alcohol abuse with intoxication, uncomplicated; Y90.6 Blood alcohol level of 120-199 mg/100 ml; F17.210 Nicotine dependence, cigarettes, uncomplicated; E78.00 Pure hypercholesterolemia, unspecified; F41.9 Anxiety disorder, unspecified; F43.10 Post-traumatic stress disorder, unspecified; F60.3 Borderline personality disorder; W17.89XA Other fall from one level to another, initial encounter; Y93.89 Activity, other specified; Y92.098 Other place in other non-institutional residence as the place of occurrence of the external cause
CPT/HCPCS: 01830; 36415; 76000; 80048; 80307; 81001; 83735; 85025; 93005; 93010; 96361; 96374; 99153; 99285; 99152; G0378; J0131; J0330; J0690; J1650; J1885; J2060; J2250; J2270; J2405; J2704; J3010; J3411; J3490; J7030; J7050; J7120; J7620

== ENCOUNTER 2018-01-28 10:30 | Emergency (ER) | payer SELFPAY ==
[2018-01-28] MEDS ORDERED: IBUPROFEN 600 MG TABLET PO ONE (10:49)
--- NOTE | 2018-01-28 11:24 | RADIOLOGY REPORT (SQ) ---
EXAM DESCRIPTION: FOREARM LEFT COMPLETED DATE/TIME: 01/28/2018 11:09 am REASON FOR STUDY: pain in left forearm COMPARISON: 11/28/2017 11/29/2017 NUMBER OF VIEWS: Two views. TECHNIQUE: Two radiographic images acquired of the left forearm, including elbow and wrist in at [address] one projection. LIMITATIONS: None. FINDINGS: MINERALIZATION: Normal. BONES: Plates are present on the radius and ulna. There is no interval change since the ORIF procedu re. Alignment remain normal. SOFT TISSUES: No obvious swelling or foreign body. OTHER: No other significant finding. IMPRESSION: No acute abnormality in the forearm. Prior ORIF. TECHNICAL DOCUMENTATION: JOB ID: [id number] [employer]- All Rights Reserved Reading location - IP/workstation name: [email or web address]
--- NOTE | 2018-01-28 11:24 | ER Document Report ---
ED Extremity Problem, Upper - General Chief Complaint: Arm Pain Stated Complaint: LEFT ARM PAIN Time Seen by Provider: 01/28/18 10:42 Mode of Arrival: Ambulatory Information source: Patient Notes: 52-year-old female presents to ED for complaint of left arm pain since yesterday. She states she was in a trauma and broke her arm 2 months ago and had it repaired by Dr. Singh. She states for some reason yesterday she started itching and scratching all over and her arm is hurting so much that she cannot move it or use it. Patient is twitching and moving her mouth back and forth throughout the whole interview. When asked if she taken any medication or has she used anything to cause this twitch or did she have any past medical history that causes a stretch she states knows she just twitching due to pain. She is scratching both arms frequently during the interview. TRAVEL OUTSIDE OF THE [place] IN LAST 30 DAYS: No - HPI Patient complains to provider of: Right, Forearm Onset: Other - Injury with surgery 2 months ago started hurting again yesterday Recent injury: No Quality of pain: Achy, Burning Pain Level: 5 Context: Other - Surgery 2 months ago. She also has a rash to both arms chest and back that she is picking at throughout her whole interview - Related Data Allergies/Adverse Reactions: Sulfa (Sulfonamide Antibiotics) Allergy (Verified 01/28/18 10:31) Past Medical History - General Information source: Patient - Social History Smoking Status: Current Every Day Smoker Cigarette use (# per day): Yes - 1/2-1 pack per day Chew tobacco use (# tins/day): No Smoking Education Provided: Yes - 4 minutes Frequency of alcohol use: Social Drug Abuse: None Occupation: [employer] Lives with: Family Family History: Reviewed & Not Pertinent Patient has suicidal ideation: No Patient has homicidal ideation: No - Medical History Medical History: Other - ITP - Past Medical History Cardiac Medical History: Reports: Hx Hypercholesterolemia Pulmonary Medical History: Reports: Hx Asthma, Hx Bronchitis EENT Medical History: Reports: None Neurological Medical History: Reports: None Endocrine Medical History: Reports: None Renal/ Medical History: Reports: Hx Pelvic Inflammatory Disease Malignancy Medical History: Reports: None GI Medical History: Reports: None Musculoskeltal Medical History: Reports Hx Musculoskeletal Trauma - right wrist Psychiatric Medical History: Reports: Hx Anxiety, Hx Borderline Personality Disorder, Hx Depression, Hx Post Traumatic Stress Disorder Traumatic Medical History: Reports: Hx Fractures Infectious Medical History: Reports: None Past Surgical History: Reports: Hx Oral Surgery, Hx Orthopedic Surgery - left arm, Other - Splenectomy - Immunizations Immunizations up to date: Yes Hx Diphtheria, Pertussis, Tetanus Vaccination: Yes - 2013 Review of Systems - Review of Systems Constitutional: No symptoms reported EENT: No symptoms reported Cardiovascular: No symptoms reported Respiratory: No symptoms reported Gastrointestinal: No symptoms reported Genitourinary: No symptoms reported Female Genitourinary: No symptoms reported Musculoskeletal: No symptoms reported Skin: No symptoms reported, Rash - Rash or skin picked areas both arms abdomen and chest Hematologic/Lymphatic: No symptoms reported Neurological/Psychological: No symptoms reported -: Yes All other systems reviewed and negative Physical Exam - Vital signs Vitals: Temp Pulse Resp BP Pulse Ox 98.8 F 66 20 144/82 H 97 01/28/18 10:35 01/28/18 10:35 01/28/18 10:35 01/28/18 10:35 01/28/18 10:35 Interpretation: Normal - General General appearance: Appears well, Alert - HEENT Head: Normocephalic, Atraumatic Eyes: Normal Pupils: PERRL - Respiratory Respiratory status: No respiratory distress Chest status: Nontender Breath sounds: Normal Chest palpation: Normal - Cardiovascular Rhythm: Regular Heart sounds: Normal auscultation Murmur: No - Abdominal Inspection: Normal Distension: No distension Bowel sounds: Normal Tenderness: Nontender Organomegaly: No organomegaly - Back Back: Normal, Nontender - Extremities General upper extremity: Normal inspection, Nontender, Normal color, Normal ROM , Normal temperature General lower extremity: Normal inspection, Normal color, Normal ROM, Normal temperature, Normal weight bearing. No: Tereso's sign Forearm: Tender - Left, Other - Scar from previous surgery. No: Normal - Rash to bilateral arms - Neurological Neuro grossly intact: Yes Cognition: Normal Orientation: AAOx4 [place] Coma Scale Eye Opening: Spontaneous [place] Coma Scale Verbal: Oriented [place] Coma Scale Motor: Obeys Commands [place] Coma Scale Total: 15 Speech: Normal Motor strength normal: LUE, RUE, LLE, RLE Sensory: Normal - Psychological Associated symptoms: Normal affect, Normal mood - Skin Skin Temperature: Warm Skin Moisture: Dry Skin Color: Normal Skin irregularity: Rash - Rash to bilateral arms chest and abdomen they appear to have been picked frequently Character of irregularity: Maculopapular, Erythematous Irregularity with: Tenderness Course - Re-evaluation Re-evalutation: 01/28/18 16:36 X-ray discussed with patient and written report of x-ray given to patient. Patient was instructed to follow-up with orthopedic surgeon who did her surgery a couple weeks ago. Patient was treated with ibuprofen and discharged home to follow-up with the orthopedic surgeon. - Vital Signs Vital signs: Temp Pulse Resp BP Pulse Ox 97.6 F 55 L 18 128/76 H 98 01/28/18 12:03 01/28/18 12:03 01/28/18 12:03 01/28/18 12:03 01/28/18 12:03 - Diagnostic Test Radiology reviewed: Image reviewed, Reports reviewed Discharge - Discharge Clinical Impression: Left arm pain Condition: Stable Disposition: HOME, SELF-CARE Instructions: Family Physicians / Practices, Use of [id number] Ibuprofen ([facility]) Additional Instructions: You were seen today for pain in your left arm. X-ray shows no new injuries to the left arm. You also have a rash to your arms. ACUTE ALLERGIC REACTION: Your symptoms are due to an allergic reaction. Allergy can cause hives, swelling of the hands, feet, and face, hoarseness, and difficulty swallowing or breathing. It may be due to exposure to medication, animal dander, foods, infection, or insect bites. Medication is a common cause, even when prior use of this same medication caused no problems. Acute treatment may include adrenalin and antihistamines. Usually, the specific allergic agent can't be identified unless repeated episodes occur. Home treatment includes the following: (1) Stop any suspicious medications. This will be discussed with you. (2) Oral antihistamines for the next four to five days. Example, diphenhydramine (Benadryl) every four hours. (3) You may also use cimetidine (Tagamet), ranitidine (Zantac), or famotidine ( Pepcid) every four hours if diphenhydramine is not controlling itching and hives. (4) Avoid aspirin until the hives completely disappear. (5) Avoid hot baths or showers until the hives are completely gone. Call the doctor if faintness, difficulty swallowing, tightness in the chest , or wheezing occurs. ACID-SUPPRESSING MEDICATION: You have a prescription for medicine which reduces the stomach's secretion of acid. Examples include Zantac, Tagament, and Pepcid. These drugs are often used to allow healing of ulcers or esophagitis. They may be needed to prevent recurrence of ulcers in some patients, or to prevent damage from acid reflux in the esophagus. Take all medication as prescribed, even after the pain is gone. Regular antacids may be added as needed if you have symptoms while taking this medicine. These medications sometimes are prescribed for allergic reactions because they have anti-histaminic effects and relieve the rash and itching of the reaction. There are usually no side effects from this medication. But, in rare cases and particularly in the elderly, serious problems can occur. Contact your doctor if there is fever, rash, hallucinations, confusion, or unusual bruising. Contact your doctor at once if you develop lightheadedness, black or bloody stool, or bloody vomitus. ANTIHISTAMINES: An antihistamine has been given and/or prescribed to control your symptoms. Antihistamines are used for many reasons, including itching, watering eyes, runny nose, allergic swelling, hives, and insect stings. Antihistamines may cause drowsiness, especially with the first dose. Do not operate machinery or drive while under the effects of the medication. Other common side effects include dry mouth and eyes. In older persons, antihistamines can occasionally cause urinary retention, constipation, and trouble focusing the eyes. Do not combine the medication with alcohol, or with any other medication without talking to your doctor. USE OF DIPHENHYDRAMINE: The use of diphenhydramine (Benadryl) has been recommended to control allergic symptoms. The 25 mg strength is available over- the-counter, as well as the elixir. This antihistamine is used for many symptoms. It's useful for itching, watering eyes and nose, allergic swelling, hives, and insect stings. The medication can be repeated four times daily. Age Elixir (12.5 mg/tsp) 25 mg pill 2-3 yr 1/2 tsp 4-8 yr 1 tsp 9-14 yr 2 tsp one tab adult 1-2 tabs Antihistamines may cause drowsiness, especially with the first dose. Do not operate machinery or drive while under the effects of the medication. Do not combine the medication with alcohol, or with any other medication without talking to your doctor. Acetaminophen Acetaminophen may be taken for pain relief or fever control. It's much safer than aspirin, offering a wider range of "safe" dosages. It is safe during . Some brand names are Tylenol, Panadol, Datril, Anacin 3, Tempra, and Liquiprin. Acetaminophen can be repeated every four hours. The following are maximum recommended dosages: WEIGHT Dose Drops Elixir Chewable( 80mg) (LBS.) drprs=droppers tsp=teaspoon 6 40 mg .4 ml (1/2) 6-11 80 mg .8 ml (full) 1/2 tsp 1 tab 12-16 120 mg 1 1/2 drprs 3/4 tsp 1 1/2 tabs 17-23 160 mg 2 drprs 1 tsp 2 tabs 24-30 240 mg 3 drprs 1 1/2 tsp 3 tabs 30-35 320 mg 2 tsp 4 tabs 36-41 360 mg 2 1/4 tsp 4 1 /2 tabs 42-47 400 mg 2 1/2 tsp 5 tabs 48-53 480 mg 3 tsp 6 tabs 54-59 520 mg 3 1/4 tsp 6 1 /2 tabs 60-64 560 mg 3 1/2 tsp 7 tabs 65-70 600 mg 3 3/4 tsp 7 1 /2 tabs 71-76 640 mg 4 tsp 8 tabs 77-82 720 mg 4 1/2 tsp 9 tabs 83-88 800 mg 5 tsp 10 tabs >89 pounds or adults 650 mg to 900 mg Acetaminophen can be repeated every four hours. Maximum daily dose not to exceed 4000 mg. These maximum recommended dosages are slightly higher than the dosages written on the product container, but these dosages are very safe and well below the toxic dosage for acetaminophen. FOLLOW-UP CARE: If you have been referred to a physician for follow-up care, call the physician s office for an appointment as you were instructed or within the next two days. If you experience worsening or a significant change in your symptoms, notify the physician immediately or return to the Emergency Department at any time for re-evaluation. Forms: Elevated Blood Pressure, Smoking Cessation Education Referrals: KHADRA SINGH MD [ACTIVE STAFF] - Follow up as needed
[2018-01-28 12:06] VITALS: BP 128/76
== END 2018-01-28 12:06 | disposition home or self-care (01) ==
LOC: ER 10:30
DX: M79.602 Pain in left arm (principal); F17.210 Nicotine dependence, cigarettes, uncomplicated; E78.00 Pure hypercholesterolemia, unspecified; Z88.2 Allergy status to sulfonamides
CPT/HCPCS: 99283; 99406